=== PATIENT | female | born 1955 | race Caucasian/White ===

== ENCOUNTER 2017-07-28 05:10 | Inpatient (IN) | payer MEDICARE ==
[~2017-07-28] VITALS: Ht 162.6 cm; Wt 161.9 kg
--- NOTE | 2017-07-28 05:20 | NUR ---
morbidly obeses lachelle arrives via [facility] with the cc of progressively weaker legs to the paoint that she can not mobilize herself. EMS was origianlly called to the residence for a left assist, however patient decided she wanted to be evalauted for proplems with ambulation. Extremely poor hygiene. wide spread cutaneous candid infection of the groin, dimitris area and under the breasts. very strong malordoorous urine detected.
[2017-07-28 05:47] LABS: HEMATOCRIT 38.3 % (37.0-47.0); HEMOGLOBIN 11.5 g/dl (12.0-16.0); IMMATURE GRANULOCYTES 0.5 % (0.0-1.0); MEAN CELL VOLUME 82.4 fL CALC (80.0-100.0); MEAN CORPUSCULAR HGB 24.7 pG CALC (26.0-32.0); NEUT# 6.52 thou/uL (2.00-7.15); RED BLOOD COUNT 4.65 mill/uL (4.20-5.60); RED CELL DISTRI WIDTH 15.7 % (11.5-15.5); URINE BILIRUBIN - DIPSTICK NEGATIVE (NEGATIVE); URINE BLOOD DIPSTICK MODERATE (NEGATIVE); URINE COLOR YELLOW; URINE GLUCOSE - DIPSTICK NEGATIVE (NEGATIVE); URINE KETONE NEGATIVE (NEGATIVE); URINE PROTEIN - DIPSTICK 100 mg/dL (NEG-TRACE); URINE SPECIFIC GRAVITY 1.025
[2017-07-28 05:48] LABS: URINE CLARITY TURBID; URINE LEUK ESTERASE MODERATE (NEGATIVE); URINE NITRITE - DIPSTICK POSITIVE (Negative)
[2017-07-28 05:51] LABS: URINE BACTERIA MODERATE hpf; URINE SQUAMOUS EPITHELIAL CELL FEW EPI/hpf (0-FEW); URINE WBC >100 WBC/hpf (0-5)
[2017-07-28 06:10] LABS: ALBUMIN 3.4 g/dL (3.2-5.0); ALKALINE PHOSPHATASE 166 u/l (38-126); ANION GAP 13 (6-22 (CALC)); BILIRUBIN, TOTAL 1.2 mg/dL (0.0-1.4); BUN 20 mg/dL (8-23); BUN/CREATININE RATIO 15 (12-20 (CALC)); CALCIUM 8.8 mg/dL (8.4-10.2); CARBON DIOXIDE 27 mmol/l (22-30); CHLORIDE 105 mmol/l (95-108); CREATININE 1.4 mg/dL (0.5-1.0); GFR 38 ML/MIN (>=60 (CALC)); GFR FOR AFR.AMER. 46 ML/MIN (>=60 (CALC)); GLUCOSE 136 mg/dL (82-115); INTERNATIONAL NORMALIZED RATIO 1.1 RATIO (0.7-1.3); POTASSIUM 4.5 mmol/l (3.5-5.1); PROTHROMBIN TIME 12.5 SECONDS (9.0-12.5); SGOT/AST 35 u/l (9-36); SGPT/ALT 35 u/l (11-66); SODIUM 141 mmol/l (137-146); TOTAL PROTEIN 8.1 g/dL (6.3-8.2)
--- NOTE | 2017-07-28 06:20 | NUR ---
niece in to visit at this time.
--- NOTE | 2017-07-28 07:00 | NUR ---
report recd from portia kay. pt semifowlers. o2 2l/m via id. thornton patent to bsdb draining dark yellow urine approx 200 ml. reports no c/o. iv site healthy to rfa. call light within reach.
--- NOTE | 2017-07-28 08:15 | NUR ---
o2 removed by md. sats decreased to 88 on room air. o2 replaced by md. call light within reach. pt advised of pending admission.
--- NOTE | 2017-07-28 08:16 | NUR ---
SBAR PRINTED TO FLOOR
--- NOTE | 2017-07-28 08:33 | NUR ---
REPORT CALLED TO LITZY COUCH.
--- NOTE | 2017-07-28 08:39 | NUR ---
PT TO MEDSURG VIA STRETCHER ON TELEMETRY. IV SITE HEALTHY. O2 2L/M VIA NC CONTINUES. NO APPARENT DISTRESS.
--- NOTE | 2017-07-28 08:45 | NUR ---
PT TO ROOM VIA STRETCHER ACCOMPANIED BY STAFF; X4 PERSON TX TO BED; PT A/O X3; O2 2L VIA NC; SERNA DRAINING CLOUDY GEGE URINE TO BEDSIDE DRAIN; TELE MONITOR IN PLACE; ORIENTED TO ROOM AND CALL SYSTEM; CALL MAXWELL WITHIN REACH; WILL CONTINUE TO MONITOR.
[2017-07-28 09:32] VITALS: BP 168/80
--- NOTE | 2017-07-28 14:00 | NUR ---
PT REPOSITIONED; FAMILY IN ROOM; CALL MAXWELL WITHIN REACH; WILL CONTINUE TO MONITOR.
[2017-07-28 15:49] VITALS: BP 149/84
--- NOTE | 2017-07-28 16:30 | NUR ---
NYSTATIN POWDER APPLIED UNDER ALL FOLDS ORDERED; PT TOLERATED WELL
--- NOTE | 2017-07-28 16:41 | NUR ---
Talked to pt. about her new medications. She reported not experience any major side effects with solu-medrol, except some tingling. Pt. reported that weakness symptoms has been less a concern from previous days. She felt better and had no allergies problems with medications that she is currently on. She had no other questions at this time.
--- NOTE | 2017-07-28 17:45 | NUR ---
PT ASSISTED WITH DINNER SET UP; NO COMPLAINTS VOICED AT THIS TIME; CALL MAXWELL WITHIN REACH; WILL CONTINUE TO MONITOR.
--- NOTE | 2017-07-28 19:30 | NUR ---
PATIENT RESTING IN BED WITH HOB ELEVATED AND O2 VIA NASAL CANNULA IN PLACE. PATIENT IS AWKAE ALERT AND ORIENTEDX3. PATIENT WITH SERNA CATH PATENT AND DRAINING CLOUDY URINE. PATIENT WITH HEP LOCK RIGHT ARM-SITE APPEARS HEALTH Y AT THIS TIME. SAFELY PRECAUTIONS REINFORCED. CALL LIGHT IN REACH. WILL CONT TO MONITOR.
[2017-07-28 20:35] VITALS: BP 117/50
[2017-07-28 23:49] VITALS: BP 125/73
[2017-07-29 03:53] VITALS: BP 125/72
[2017-07-29 06:31] LABS: HEMATOCRIT 32.8 % (37.0-47.0); HEMOGLOBIN 9.8 g/dl (12.0-16.0); IMMATURE GRANULOCYTES 0.6 % (0.0-1.0); MEAN CELL VOLUME 83.5 fL CALC (80.0-100.0); MEAN CORPUSCULAR HGB 24.9 pG CALC (26.0-32.0); MEAN CORPUSCULAR HGB CONC 29.9 g/L CALC (32.0-36.0); NEUT# 6.38 thou/uL (2.00-7.15); RED BLOOD COUNT 3.93 mill/uL (4.20-5.60); RED CELL DISTRI WIDTH 15.3 % (11.5-15.5)
[2017-07-29 06:50] LABS: CALCIUM 8.4 mg/dL (8.4-10.2); CREATININE 1.5 mg/dL (0.5-1.0); MAGNESIUM 1.9 mg/dL (1.6-2.3)
[2017-07-29 06:51] LABS: POTASSIUM 5.2 mmol/l (3.5-5.1)
[2017-07-29 08:10] VITALS: BP 149/70
[2017-07-29 08:51] LABS: CHOLESTEROL HDL RATIO 5.1 (<4.4 (CALC))
--- NOTE | 2017-07-29 10:30 | NUR ---
PHYSICAL THERAPY IN WITH PT
[2017-07-29 11:00] VITALS: BP 125/70
--- NOTE | 2017-07-29 11:31 | NUR ---
PT REPOSITIONED AND ASSISTED WITH LUNCH SET UP
[2017-07-29 16:01] VITALS: BP 123/68
--- NOTE | 2017-07-29 17:40 | NUR ---
PT REPOSITIONED; ASSISTED WITH DINNER SET UP; NO COMPLAINTS VOICED; CALL MAXWELL WITHIN REACH; WILL CONTINUE TO MONITOR.
[2017-07-29 19:25] VITALS: BP 100/65
--- NOTE | 2017-07-29 19:30 | NUR ---
PATIENT RESTING IN BED WITH HOB ELEVATED AND O2 VIA NASAL CANNULA IN PLACE. PATIENT IS AWAKE ALERT AND ORIENTEDX3. HEP LOCK TO RIGHT AC-SITE APPEARS HEALTHY AT THIS TIME. BLE ARE RED AND SCALEY-ENCOURAGED TO KEEP ELEVATED WHEN ABLE. SERNA CATH PATENT AND DRAINING CLOUDY YELLOW URINE. SAFETY PRECAUTIONS REINFORCED. CALL LIGHT IN REACH. WILL CONT TO MONITOR.
--- NOTE | 2017-07-29 21:00 | NUR ---
PATIENT CONSTANTLY CALLING MOSTLY FOR BEDPAN WITH NO BM RESULTING. PATIENT IS MAX ASSIST OOB TO C WITH CONSTANT VERBAL QUES AND USE OF WALKER. PATIENT CONSTANTLY STATES THAT SHE IS GOING TO FALL-CONSTANT REASSURANCE GIVE. PATIENT WAS ABLE TO HAVE MODERATE AMT OF BROWN BM. LINENS WERE CHANGED. PATIENT WAS MAX ASSIST BACK TO BED AGAIN USING THE WALKER AND CONSTANT QUES. MUCH REASSURANCE WAS GIVEN. EDUCATED PATIENT ON THE DANGERS ON IMMOBILITY AND HOW IT AFFECTS THE BODY. PATIENT WAS GIVEN BATH AND SERNA CATH CARE. NYSTATIN POWDER WAS USE TO AFFECTED AREAS INCLUDING UNDER BOTH BREAST AND MULTIPLE ABD FOLDS-NEEDS MAX ASSIST TO DO PERSONEL CARE DUE TO THE PATIENT MORBID OBESITY. ASSISTED WITH REPOSITIONING. HOB ELEVATED FOR COMFORT. PATIENT ASKING FOR SANDWICH-PROVIDED WITH DRINK. SAFETY PRECAUTIONS REINFORCED. CALL LIGHT IN REACH.
[2017-07-29 23:46] VITALS: BP 135/75
--- NOTE | 2017-07-30 00:41 | NUR ---
PATIENT APPEARS SLEEPING AT THIS TIME WITH HOB ELEVATED AND O2 VIA NASAL CANNULA IN PLACE. SERNA PATENT AND DRAINING CLOUDY URINE. CALLL LIGHT IN REACH. WILL CONT TO MONITOR.
--- NOTE | 2017-07-30 03:30 | NUR ---
PATIENT APPEARS SLEEPING WITH HOB ELEVATED AND O2 VIA NASAL CANNULA IN PLACE. CALL LIGHT IN REACH. WILL CONT TO MONITOR.
[2017-07-30 03:45] VITALS: BP 155/99
[2017-07-30 05:30] VITALS: BP 137/65
--- NOTE | 2017-07-30 05:31 | NUR ---
PATIENT RESTING IN BED AT THIS TIME-REPEATING THAT SHE WANTS TO SLEEP; VS TAKEN AND RECORDED. HAND GRASP ARE EQUAL. MOVEMENT OF EXTREMITIES ARE WNL. SKIN IS WARM AND DRY. BS-337 VIA ACCU-CHECK. ALERT AND ORIENTEDX3. HAVING SOME DIFFICULTY FOLLOWING DIRECTIONS. O2 VIA NASAL CANNULA IN PLACE WITH HOB ELEVATED. CALL LIGHT IN REACH. WILL CONT TO MONITOR.
[2017-07-30 05:55] LABS: HEMATOCRIT 34.6 % (37.0-47.0); HEMOGLOBIN 10.1 g/dl (12.0-16.0); IMMATURE GRANULOCYTES 1.3 % (0.0-1.0); MEAN CELL VOLUME 86.1 fL CALC (80.0-100.0); MEAN CORPUSCULAR HGB 25.1 pG CALC (26.0-32.0); MEAN CORPUSCULAR HGB CONC 29.2 g/L CALC (32.0-36.0); NEUT# 12.44 thou/uL (2.00-7.15); RED BLOOD COUNT 4.02 mill/uL (4.20-5.60); RED CELL DISTRI WIDTH 15.7 % (11.5-15.5)
[2017-07-30 06:08] LABS: CALCIUM 8.6 mg/dL (8.4-10.2)
[2017-07-30 06:16] LABS: POTASSIUM 5.7 mmol/l (3.5-5.1)
[2017-07-30 08:20] VITALS: BP 127/70
--- NOTE | 2017-07-30 10:05 | NUR ---
PT.UP TO BSC AND BACK TO BED. PT.VERY WEAK, MANAGED X1 PIVOT OF FEET W/3XSTANDBY ASSIST. PT.MEDICATED W/MORNING MEDICATIONS ORDERED AND VENIFER. PT.HAS BEEN INSTRUCTED TO CALL NEEDS ARISE, CALL LIGHT W/IN REACH
[2017-07-30 11:00] VITALS: BP 138/64
--- NOTE | 2017-07-30 14:00 | NUR ---
PT.MEDICATED ORDERS PROVIDE, DAUGHTER AT BEDSIDE. PT.DENIES ANY OTHER NEEDS AT THIS TIME.
[2017-07-30 16:00] VITALS: BP 144/76
--- NOTE | 2017-07-30 16:07 | NUR ---
PATIENT AGREES TO TRY AND STAND, BUT DOES NOT FEEL COMFORTABLE WITH THE 2 WHEELED WALKER IN HER ROOM. SHE STATES THAT SHE ORDERED A BARIATRIC 4 WW WHICH SHOULD BE DELIVERED TO HER HERE AT THE HOSPITAL TOMORROW. SUPINE TO SIT BY SLOWLY MOVING EACH LEG TO THE RIGHT OFF THE BED. MAX PULL TO SIT WITH LEFT UE USING BED RAILS. PATIENT STATES THAT SHE HAS NOT BEEN ABLE TO SLEEP IN HER BED, BUT HAS BEEN SLEEPING SITTING UP ON COUCH AT HOME. SIT TO STAND WITH CGA, BED AND WALKER STABILIZED WITHOUT LOB. STOOD X 1 MIN AND WAS FATIGUED. STAND TO SIT WITH CGA AND V.C.'S. SIT TO SUPINE WITH MAX A AT LE'S AND DEPENDENT FOR CAUDAL SCOOTING WITH MAX A OF 3. PATIENT WILL NEED TO BE D/C'D TO INPATIENT REHAB SHE LIVES ALONE AND IS NOT ABLE TO CARE FOR HERSELF.
--- NOTE | 2017-07-30 16:40 | NUR ---
PT. MEDICATED FOR BS OF 311. PT.CLEANED AND TREATED W/NYSTATIN POWDER. DENIES ANY OTHER NEEDS AT THIS TIME. ASSISTED PT.IN REPOSITIONING. CALL LIGHT IN HAND
[2017-07-30 18:55] VITALS: BP 139/74
--- NOTE | 2017-07-30 19:30 | NUR ---
PT SITTING UP IN BED WATHING TV. PT IS ALERT AND ORIENTED X3. PERRLA. LUNGS ARE DIMINISHED. RESP ARE EVEN AND UNLABORED. TELE IN PLACE. HR REGULAR. PULSES PALPABLE THROUGHOUT. EDEMA NOTED 1+ TO BILAT LOWER EXT. BS ACTIVE. PT REPORTS A NORMAL BM YESTERDAY. SERNA DRAINING. YELLOW URINE THAT IS CLOUDY. #20 RFA. SALINE LOCKED. NO REDNESS OR EDEMA NOTED. WILL CONTINUE TO MONITOR.
--- NOTE | 2017-07-31 | NUR ---
PT SITTING UP IN BED WATCHING TV. RESP ARE EVEN AND UNLABORED. NO COMPLAINTS AT THIS TIME. TELE IN PLACE. SERNA DRAINING YELLOW URINE. WILL CONTINUE TO MONITOR
[2017-07-31 00:10] VITALS: BP 133/76
--- NOTE | 2017-07-31 04:14 | NUR ---
PT RESTING IN BED. RESP ARE EVEN AND UNLABORED. TELE IN PLACE. SERNA IN PLACE, NO COMPLAINTS AT THIS TIME. WILL CONTINUE TO MONITOR
[2017-07-31 04:45] VITALS: BP 133/82
--- NOTE | 2017-07-31 07:10 | NUR ---
PT.IN BED ASLEEP AT THIS TIME, BEDSIDE REPORT RECEIVED FROM NIGHT NURSE.
[2017-07-31 07:11] LABS: HEMATOCRIT 33.5 % (37.0-47.0); HEMOGLOBIN 9.9 g/dl (12.0-16.0); MEAN CELL VOLUME 84.8 fL CALC (80.0-100.0); MEAN CORPUSCULAR HGB 25.1 pG CALC (26.0-32.0); MEAN CORPUSCULAR HGB CONC 29.6 g/L CALC (32.0-36.0); RED BLOOD COUNT 3.95 mill/uL (4.20-5.60); RED CELL DISTRI WIDTH 15.4 % (11.5-15.5)
[2017-07-31 07:32] LABS: CALCIUM 8.5 mg/dL (8.4-10.2); CREATININE 2.2 mg/dL (0.5-1.0); POTASSIUM 5.4 mmol/l (3.5-5.1)
[2017-07-31 08:00] VITALS: BP 143/87
--- NOTE | 2017-07-31 08:00 | NUR ---
PT.V/S ASSESSED, PT.IS UPRIGHT IN BED EATING BREAKFAST AT THIS TIME. DENIES ANY PAIN OR DISCOMFORT. CALL LIGHT IS W/IN REACH
--- NOTE | 2017-07-31 10:15 | NUR ---
PT.CALLED TO ASK TO BE PLACED ON A BEDPAN, I ENCOURAGED PT.TO GET UP TO BEDSIDE COMMODE. PT.STATED THAT "IT'S TOO HARD," "I'M TOO TIRED." I INSTRUCTED PT.THAT WE NEED HER TO GET STRONGER SO SHE NEEDS TO GET UP TO BEDSIDE COMMODE AND NOT USE A BEDPAN AND THAT IS THE ONLY WAY SHE WILL INCREASE HER MOBILITY AND STRENGTH. PT.AGREED WITH MUCH ENCOURAGEMENT. PT.AMBULATED WITH ONE FO0T PIVOT TO BEDSIDE COMMODE WITH GREAT DIFFICULTY. SHE IS VERY WEAK IN HER UPPER ARMS AND LEGS. PT.WAS THEN ASSISTED TO RECLINER WITH AGAIN ONE FOOT PIVOT. 3X PEOPLE ASSISTING.
--- NOTE | 2017-07-31 10:30 | NUR ---
PT UP TO RECLINER BY 2 STAFF MEMBERS. PT TOOK 2 STEPS FORWARD TO RECLINER AND STOOD FOR A FEW MINUTES BEFORE SITTING IN RECLINER.
[2017-07-31 11:00] VITALS: BP 153/79
--- NOTE | 2017-07-31 11:21 | NUR ---
ATTEMPTED TX THIS MORNING AROUND 9:45AM. PT WAS WITH CNAS GIVING HER A BATH. WILL TRY AGAIN LATER.
--- NOTE | 2017-07-31 12:05 | NUR ---
PT WAS SEEN SITTING IN THE RECLINER. O2 VIA NASAL CANNULA WAS SET AT 2.5L SPO2 WAS 92%. MOD A WITH MULTIPLE ATTEMPTS TO PERFORM [id number]. PT WAS ABLE TO UTILIZE B UE TO PUSH SELF UP. TRANSFERRED FROM CHAIR TO BED WITH MAX A OF 2. PT WAS WITH SOB AND DIFFICULTY SCOOTING TO POSITION SELF ON THE BED. ELEVATED HOB REQUESTED BY PT. LEFT PT WITHOUT ADVERSE RXNS. CALL MAXWELL BESIDE HER.
--- NOTE | 2017-07-31 14:20 | NUR ---
Adan. HAS BEEN IN TO WORK WITH PT. THEY PLACED HER BACK IN BED.
[2017-07-31 15:00] VITALS: BP 136/63
[2017-07-31 18:55] VITALS: BP 134/72
--- NOTE | 2017-07-31 20:15 | NUR ---
PT SITTING UP IN BED. VISITOR IN ROOM. PT IS ALERT AND ORIENTED X3. PERRLA. LUNGS ARE DIMINISHED. RESP ARE EVEN AND UNLABORED. TELE IN PLACE. HR REGULAR. PULSES PALPABLE THROUGHOUT. NO EDEMA NOTED. BS ACTIVE. NO REDNESS OR EDEMA NOTED AT IV SITE. WILL CONTINUE TO MONITOR
--- NOTE | 2017-07-31 23:00 | NUR ---
PT SITTING UP IN BED. PT HAS TAKEN GOWN OFF. REORIENTED PT.
--- NOTE | 2017-08-01 | NUR ---
PT RESTING IN BED WITH EYES CLOSED. RESP ARE EVEN AND UNLABORED. TELE IN PLACE. WILL CONTINEU TO MONITOR
[2017-08-01 00:22] VITALS: BP 133/77
--- NOTE | 2017-08-01 04:00 | NUR ---
PT RESTING IN BED WITH EYES CLOSED. PT AROUSES TO VERBAL STIMULI. PT CONTINUES TO HAVE PERIODS OF CONFUSION. PT UNDRESSED. REDERESSED PT. TELE IN PLACE. WILL CONTINUE TO MONITOR
[2017-08-01 04:22] VITALS: BP 146/85
[2017-08-01 07:01] LABS: HEMATOCRIT 34.3 % (37.0-47.0); IMMATURE GRANULOCYTES 4.6 % (0.0-1.0); MEAN CELL VOLUME 84.7 fL CALC (80.0-100.0); MEAN CORPUSCULAR HGB 24.7 pG CALC (26.0-32.0); MEAN CORPUSCULAR HGB CONC 29.2 g/L CALC (32.0-36.0); NEUT# 6.51 thou/uL (2.00-7.15); RED BLOOD COUNT 4.05 mill/uL (4.20-5.60); RED CELL DISTRI WIDTH 15.6 % (11.5-15.5)
[2017-08-01 07:14] LABS: CALCIUM 8.5 mg/dL (8.4-10.2); CREATININE 2.1 mg/dL (0.5-1.0)
[2017-08-01 07:20] LABS: POTASSIUM 5.4 mmol/l (3.5-5.1)
--- NOTE | 2017-08-01 07:58 | NUR ---
PT.IS UPRIGHT IN BED EATING BREAKFAST, ASSISTED PT.IN REPOSITIONING. PT.MEDICATED W/NOVOLOG FOR A BS OF 179 AND V/S ASSESSED. DENIES ANY OTHER NEEDS AT THIS TIME, CALL LIGHT IS AT HAND.
[2017-08-01 08:02] VITALS: BP 146/65
[2017-08-01 11:00] VITALS: BP 139/66
[2017-08-01] MEDS ORDERED: IPRATROPIU0.5 MG/3 M NEB (13:47)
--- NOTE | 2017-08-01 13:47 | NUR ---
Pt. found resting in bed with HOB elevated and O2 at 2L via NC. Pt. in agreement to participate in therapeutic exercises while in bed. Pt. instructed on and performed bilateral AROM elbow flexion 1x10 repetitions, bilateral AROM shoulder flexion 1x10 repetitions, bilateral AROM ankle PF and DF 1x10 repetitions, right AAROM hip abduction 1x10 repetition and left AAROM hip abduction 1x10 repetitions. O2 sats maintained above 92% during treatment. Pt. reported feeling tired after few exercises, heels were floated using pillows. Call light reviewed and left within reach. Pt. without complaints.
[2017-08-01] MEDS ORDERED: NYSTOP100000 UNI TOP (13:48)
[2017-08-01] MEDS ORDERED: LEVAQUIN750 MG PO (13:49)
[2017-08-01] MEDS ORDERED: PREDNISONE10 MG PO (13:49)
[2017-08-01] MEDS ORDERED: CARDIZEM CD120 MG PO (13:50)
--- NOTE | 2017-08-01 15:25 | NUR ---
PT.REPOSITIONED IN THE BED AND NYSTATIN POWDER ADMINISTERED ALONG W/ ORDERED MEDICATIONS. FAMILY IS AT BEDSIDE. CALL LIGHT W/IN REACH, PT.DENIES ANY OTHER NEEDS AT THIS TIME
[2017-08-01 16:00] VITALS: BP 144/78
--- NOTE | 2017-08-01 18:10 | NUR ---
PT.DISCHARGED OFF THE UNIT FLOOR VIA WC ACCOMPANIED BY [facility] STAFF. PT.LEFT IN GOOD CONDITION W/O2 NC ON@2L.
== END 2017-08-01 18:04 | DRG 190 ==
LOC: ED 05:10 → ED-I 08:02 → ED 08:20 → MS2 08:21
PROVIDERS: Emergency Medicine; Nurse Practitioner Family; ADMIT Internal Medicine; ATTEND Internal Medicine
PROC: 0T9B70Z Drainage of Bladder with Drainage Device, Via Natural or Artificial Opening (ICD-10-PCS; principal; 2017-07-28)
DX: J44.1 Chronic obstructive pulmonary disease with (acute) exacerbation (principal); J96.01 Acute respiratory failure with hypoxia; N17.9 Acute kidney failure, unspecified; N18.3 Chronic kidney disease, stage 3 (moderate); L03.115 Cellulitis of right lower limb; E66.2 Morbid (severe) obesity with alveolar hypoventilation; E87.5 Hyperkalemia; L03.116 Cellulitis of left lower limb; N39.0 Urinary tract infection, site not specified; Z68.43 Body mass index [BMI] 50.0-59.9, adult; D63.1 Anemia in chronic kidney disease; I12.9 Hypertensive chronic kidney disease with stage 1 through stage 4 chronic kidney disease, or unspecified chronic kidney disease; I16.0 Hypertensive urgency; B96.20 Unspecified Escherichia coli [E. coli] as the cause of diseases classified elsewhere; R60.1 Generalized edema; L30.4 Erythema intertrigo; Z86.73 Personal history of transient ischemic attack (TIA), and cerebral infarction without residual deficits; Z87.891 Personal history of nicotine dependence
CPT/HCPCS: J1650; J1756

== ENCOUNTER 2017-08-03 14:43 | Emergency (ER) | payer MEDICARE ==
[~2017-08-03] VITALS: Ht 162.6 cm; Wt 154.0 kg
[~2017-08-03 14:43] MED LIST: CARDIZEM CD120 MG PO; IPRATROPIU0.5 MG/3 M NEB; LEVAQUIN750 MG PO; NYSTOP100000 UNI TOP; PREDNISONE10 MG PO
[2017-08-03 15:08] LABS: HEMATOCRIT 34.9 % (37.0-47.0); HEMOGLOBIN 10.3 g/dl (12.0-16.0); IMMATURE GRANULOCYTES 4.8 % (0.0-1.0); MEAN CELL VOLUME 83.5 fL CALC (80.0-100.0); MEAN CORPUSCULAR HGB 24.6 pG CALC (26.0-32.0); MEAN CORPUSCULAR HGB CONC 29.5 g/L CALC (32.0-36.0); NEUT# 6.03 thou/uL (2.00-7.15); RED BLOOD COUNT 4.18 mill/uL (4.20-5.60); RED CELL DISTRI WIDTH 15.9 % (11.5-15.5)
[2017-08-03 16:02] LABS: ALBUMIN 3.2 g/dL (3.2-5.0); BILIRUBIN, TOTAL 0.6 mg/dL (0.0-1.4); CALCIUM 8.9 mg/dL (8.4-10.2); CREATININE 1.8 mg/dL (0.5-1.0); TOTAL PROTEIN 6.8 g/dL (6.3-8.2)
[2017-08-03 16:06] LABS: POTASSIUM 5.8 mmol/l (3.5-5.1)
[2017-08-03 17:03] LABS: URINE BILIRUBIN - DIPSTICK NEGATIVE (NEGATIVE); URINE BLOOD DIPSTICK LARGE (NEGATIVE); URINE COLOR YELLOW; URINE GLUCOSE - DIPSTICK 100 mg/dL (NEGATIVE); URINE KETONE NEGATIVE (NEGATIVE); URINE NITRITE - DIPSTICK NEGATIVE (Negative); URINE PH 5.5 (4.5-8.0); URINE PROTEIN - DIPSTICK >=300 mg/dL (NEG-TRACE); URINE SPECIFIC GRAVITY 1.025; URINE UROBILINOGEN - DIPSTICK 0.2 E.U./dL (0.2)
[2017-08-03 17:05] LABS: URINE CLARITY CLOUDY; URINE LEUK ESTERASE SMALL (NEGATIVE)
[2017-08-03 17:14] LABS: URINE BACTERIA FEW hpf; URINE RBC TNTC RBC/hpf (0-5); URINE SQUAMOUS EPITHELIAL CELL FEW EPI/hpf (0-FEW)
[2017-08-03 18:18] VITALS: BP 136/62
== END 2017-08-03 18:18 | disposition short-term general hospital (02) ==
LOC: ED 14:43
PROVIDERS: Emergency Medicine
PROC: 0T9B70Z Drainage of Bladder with Drainage Device, Via Natural or Artificial Opening (ICD-10-PCS; principal; 2017-08-03)
DX: I63.9 Cerebral infarction, unspecified (principal); G81.94 Hemiplegia, unspecified affecting left nondominant side; R29.702 NIHSS score 2; I50.9 Heart failure, unspecified; E87.5 Hyperkalemia; J44.1 Chronic obstructive pulmonary disease with (acute) exacerbation; R09.02 Hypoxemia; R06.02 Shortness of breath; R94.31 Abnormal electrocardiogram [ECG] [EKG]; R41.82 Altered mental status, unspecified

== ENCOUNTER 2020-03-20 03:30 | Inpatient (IN) | payer MEDICARE ==
[~2020-03-20] VITALS: Ht 160 cm; Wt 178.5 kg
--- NOTE | 2020-03-20 03:30 | NUR ---
A/OF VIA EMS FROM HOME WIT HC/O SWELLING AT L BREAST X 2-3 DAYS DENIES DISCHARGE NO PAIN NO DIFF BREATHING
[2020-03-20 04:23] LABS: HEMATOCRIT 33.3 % (37.0-47.0); HEMOGLOBIN 9.9 g/dl (12.0-16.0); IMMATURE GRANULOCYTES 0.5 % (0.0-5.0); MEAN CORPUSCULAR HGB 28.4 pG CALC (26.0-32.0); MEAN CORPUSCULAR HGB CONC 29.7 g/dL CAL (32.0-36.0); NEUT# 5.03 thou/uL (2.00-7.15); RED BLOOD COUNT 3.48 mill/uL (4.20-5.60); RED CELL DISTRI WIDTH 14.8 % (11.5-15.5)
[2020-03-20 04:26] LABS: MEAN CELL VOLUME 95.7 fL CALC (80.0-100.0)
--- NOTE | 2020-03-20 04:39 | NUR ---
NO PAIN NO DYSPNEA.HOB FULLY ELEVATED.
[2020-03-20 05:00] LABS: BILIRUBIN, TOTAL 0.6 mg/dL (0.0-1.4); MAGNESIUM 2.2 mg/dL (1.6-2.3); TOTAL PROTEIN 6.6 g/dL (6.3-8.2)
[2020-03-20 05:01] LABS: CREATININE 2.8 mg/dL (0.5-1.0); POTASSIUM 5.5 mmol/l (3.5-5.1)
--- NOTE | 2020-03-20 05:14 | NUR ---
W/P/D SKIN SR NO ECTOPY ICE CHIPS GIVEN.NO DYSPNES NO PAIN
[2020-03-20 05:49] LABS: TSH, 3RD GENERATION 4.38 uIU/mL (0.47 - 4.68)
--- NOTE | 2020-03-20 06:05 | NUR ---
PT IS COMFORTABLE NO C/O PAIN IV INFUSION UNREMARKABLE.SR NO ECTOPY PILLOW PROPPED UNDER LEFT ARM FOR COMFORT
--- NOTE | 2020-03-20 06:50 | NUR ---
PT REPORT TO NURSE KIRKLAND ON MS2
--- NOTE | 2020-03-20 06:55 | NUR ---
PT TRANSPORTED TO 273 VIA STRETCHER IN STABLE CONDITION
[2020-03-20 07:20] VITALS: BP 150/65
[2020-03-20 08:10] VITALS: BP 124/68
--- NOTE | 2020-03-20 12:33 | NUR ---
DR. GARCIA AT BEDSIDE.
--- NOTE | 2020-03-20 13:19 | NUR ---
Report received from rafael.pt arrived to the floor @ 0645. pt transfered to the bed on slider from [facility]. Vitals and assessment preformed. PT REPORTS REDDNESS AND SENITIVITY TO HER LEFT BREAST. PT DENIES PAIN. PT HAS CLEAR LUNG SOUNDS BUT O2 STATS DOWN TO 89% WITH EXERTION. PT PLACED OLN 2 LITERS OF OXYGEN VIA NASAL CANNULA. HEALTHY IV SITE ON RIGHT HAND. DISSCUSSED POC. PT MORBIDLY OBESE WITH ACTIVE ABDOMINAL SOUNDS IN ALL QUARTER. PT ALERT AND ORIENTED. PT VERBALIZED UNDERSTANDING OF CALL MAWXELL AND THE NEED TO SEEK ASSISTANCE WITH AMBULATION TO THE BEDSIDE COMMODE. WILL CONTINUT TO MONITOR.
--- NOTE | 2020-03-20 13:22 | NUR ---
NEW RECEIVED FOR LASIX; ADMINISTERED IV AND PURWIK CATHETER NOW IN PLACE. PT USED BEDPAIN TWICE FOR VOID; ENCOURAGED TO USE BSC BUT STATES, "I DON'T THINK I CAN DO THAT TODAY." EVALUATED BY PT WITH IN BED EXERCISES.
--- NOTE | 2020-03-20 13:32 | NUR ---
NYA PROVIDED AND PLACED. SAFETY MEASURES IN PLACE.
[2020-03-20 15:19] LABS: URINE BILIRUBIN - DIPSTICK NEGATIVE (NEGATIVE); URINE BLOOD DIPSTICK TRACE-LYSED (NEGATIVE); URINE CLARITY CLEAR; URINE COLOR YELLOW; URINE GLUCOSE - DIPSTICK NEGATIVE (NEGATIVE); URINE KETONE NEGATIVE (NEGATIVE); URINE LEUK ESTERASE TRACE (Negative); URINE NITRITE - DIPSTICK NEGATIVE (Negative); URINE PH 5.5 (4.5-8.0); URINE PROTEIN - DIPSTICK 100 mg/dL (NEG-TRACE); URINE UROBILINOGEN - DIPSTICK 0.2 E.U./dL (0.2)
[2020-03-20 15:51] LABS: URINE SQUAMOUS EPITHELIAL CELL FEW EPI/hpf (0-FEW)
[2020-03-20 16:09] VITALS: BP 126/67
--- NOTE | 2020-03-20 16:16 | NUR ---
PATIENT ALERT AND ORIENTED; NO APPARENT DISTRESS. DENIES PAIN. IV CLEAN AND INTACT. TELE ON.PURWICK IN POSITION AND COLLECTING. PT ENCOURAGED TO VERBALIZE ANY CONCERNS. CALL MAXWELL WITHIN REACH. WILL CONTINUE TO MONITOR.
--- NOTE | 2020-03-20 17:27 | NUR ---
PTS ANTIBIOTIC DOXYCYCLINE RUNNING. PT IS IN NO APPARENT DISTRESS/PAIN. ENCOURAGED TO CALL FOR ANY NEEDS. CALL LIGHT WITHIN REACH.
[2020-03-20 19:00] VITALS: BP 120/68
--- NOTE | 2020-03-20 19:00 | NUR ---
RECEIVED REPORT FROM DAY NURSE PATIENT RESTING IN BREATHING SHALLOW, UNLABORED, HOOKED TO UR Mobile[employer] CALL LIGHT AT REACH.
--- NOTE | 2020-03-20 21:00 | NUR ---
PATIENT ALERT AND ORIENTED ABLE TO MAKE NEEDS KNONW, WITH SALINE LOCK ON LEFT PATENT AND FLUSHES WELL, LBM 03/19, WITH PUREWICK, NOTED TO HAVE EDEMA ON ABDOMINAL AREA AND SWELLING ON LEFT BREAST, POX 88-89 ON ROOM AIR OXYGEN APPLIED, CURRENTLY ON 1.5LPM VIA NC POX 93%. pATIENT DENIES PAIN OR DISCOMFORTS CALL LIGHT AT REACH, PATIEN REPOSITIONED FOR COMFORT.
--- NOTE | 2020-03-21 | NUR ---
PATIENT AWAKE AT THIS TIME, REMAINS ON O2 @ 1.5LPM VIA NC, BREATHING SHALLOW UNLABORED CALL LIGHT AT REACH.
[2020-03-21 04:00] VITALS: BP 132/64
--- NOTE | 2020-03-21 05:07 | NUR ---
PATIENT AWAKE AT THIS TIME, PATIENT REPOSITIONED, REMAINS ON O2 @ 1.5LPM VIA NC, BREATHING UNLABORED CALL LIGHT AT REACH.
[2020-03-21 05:50] LABS: HEMATOCRIT 34.2 % (37.0-47.0); HEMOGLOBIN 9.8 g/dl (12.0-16.0); MEAN CELL VOLUME 98.6 fL CALC (80.0-100.0); MEAN CORPUSCULAR HGB 28.2 pG CALC (26.0-32.0); MEAN CORPUSCULAR HGB CONC 28.7 g/dL CAL (32.0-36.0); RED BLOOD COUNT 3.47 mill/uL (4.20-5.60); RED CELL DISTRI WIDTH 14.6 % (11.5-15.5)
[2020-03-21 06:12] LABS: CHOLESTEROL HDL RATIO 4.6 (<4.4 (CALC)); MAGNESIUM 2.3 mg/dL (1.6-2.3)
[2020-03-21 06:16] LABS: POTASSIUM 5.2 mmol/l (3.5-5.1)
[2020-03-21 06:28] LABS: ALBUMIN 3.1 g/dL (3.2-5.0); CREATININE 2.9 mg/dL (0.5-1.0)
[2020-03-21 06:29] LABS: POTASSIUM 5.2 mmol/l (3.5-5.1)
[2020-03-21 08:10] VITALS: BP 120/60
--- NOTE | 2020-03-21 08:53 | NUR ---
SISTER ROBI UPDATED WITH PT CONSENT; PROVIDED WITH CODE. QUESTIONS ANSWERED TO SATISFACTION.
--- NOTE | 2020-03-21 09:05 | NUR ---
PHYSICAL THERAPY WORKING WITH PT.
--- NOTE | 2020-03-21 10:05 | NUR ---
REPORT RECIEVED; PT ASSESSED V/S ASSESSED, PT IS ALERT AND ORIENTED. NO S/O DISTRESS NOTED. IV SITE APPEARS HEALTHY WITH HEALTHY FLUSHES. POC REVIEWED.
--- NOTE | 2020-03-21 10:09 | NUR ---
16 TAMAZIGHT SERNA CATHETER INSERTED AT 0950. PT TOLERATED PROCEDURE WELL. URINE RETURN.
--- NOTE | 2020-03-21 10:32 | NUR ---
IV SITE TO LEFT HAND RED, WARM, AND PAINFUL TO FLUSH; IV D/C'D AND NEW SITE PLACED TO RAC. VENEFOR NOW INFUSING WITHOUT DIFFICULTY. PT SITTING UP IN BED TALKING ON CELL PHONE TO MULIPLE FAMILY MEMBERS.
--- NOTE | 2020-03-21 11:02 | NUR ---
Pt. found resting in bed upon entering room, explained physical therapy treatment plan of which she agrees to exercise in bed. Pt. performed PROM ankle PF/DF x10 repetitions, AAROM heel slides x5 repetitions, glut. sets x 10 repetitions, quad. sets x10 repetitions, AROM overhead reaching x10 repetitions and AROM elbow flexion x10 repetitions with intermitent verbal, visual and tactile cues. Post treatment pt. left resting comfortably in bed with call light+bedside table within reach. AMPAC score unchanged.
[2020-03-21 15:57] VITALS: BP 113/65
--- NOTE | 2020-03-21 16:00 | NUR ---
ASSISTED TO BEDPAN FOR BOWEL MOVEMENT X 2. SERNA CATHETER DRAINING CLEAR YELLOW URINE IN ADEQUATE AMOUNTS. NO REQUESTS OR CONCERNS AT THIS TIME. CALL LIGHT WITHIN REACH.
--- NOTE | 2020-03-21 19:00 | NUR ---
RECEIVED REPORT FROM NURSE ROBLERO PATIENT RESTING IN BED, HOOKED TO O2 @ 2LPM VIA NC, BREATHING SHALLOW UNLABORED, CALL LIGHT AT REACH.
[2020-03-21 19:15] VITALS: BP 104/39
[2020-03-21 20:45] VITALS: BP 100/62
--- NOTE | 2020-03-21 21:00 | NUR ---
PATIENT ALERT ORIENTED ABLE TO MAKE NEEDS KNOWN, HOOKED TO O2 @ 2LPM VIA NC, WITH INDWELLING SERNA CATHETER F 16 DRAINING CLEAR YELOOW URINE, REMAINS ON 1500CC FLUID RWESTRICTION, BREATHING SHALLOW UNLABORED, CALL LIGHT AT REACH.
--- NOTE | 2020-03-22 00:55 | NUR ---
PATIENT CURRENTLY RESTING IN BED, WITH EYES CLOSED, NOT IN DISTRESS CALL LIGHT AT REACH.
[2020-03-22 03:30] VITALS: BP 119/68
--- NOTE | 2020-03-22 04:05 | NUR ---
PATIENT AWAKE CURRENTLY WATCHING TV, DENIES PAIN REMAINS ON O2 @ 2LPM, BREATHING UNLABORED, CALL LIGHT AT REACH.
[2020-03-22 05:51] LABS: HEMATOCRIT 32.6 % (37.0-47.0); HEMOGLOBIN 9.4 g/dl (12.0-16.0); IMMATURE GRANULOCYTES 1.4 % (0.0-5.0); MEAN CELL VOLUME 97.9 fL CALC (80.0-100.0); MEAN CORPUSCULAR HGB 28.2 pG CALC (26.0-32.0); MEAN CORPUSCULAR HGB CONC 28.8 g/dL CAL (32.0-36.0); NEUT# 3.62 thou/uL (2.00-7.15); RED BLOOD COUNT 3.33 mill/uL (4.20-5.60); RED CELL DISTRI WIDTH 14.6 % (11.5-15.5)
[2020-03-22 06:13] LABS: ALBUMIN 2.7 g/dL (3.2-5.0); CREATININE 2.9 mg/dL (0.5-1.0); POTASSIUM 5.1 mmol/l (3.5-5.1)
[2020-03-22 09:00] VITALS: BP 124/70
--- NOTE | 2020-03-22 12:25 | NUR ---
Explained treatment plan of which pt. agrees to participate in therapeutic exercises in bed. Pt. able to perform slight weight shifting side to side with use of arms on railing, AROM overhead reaching x 10 repetitions, quad. sets x 10 repetitions, glut. sets x 10 repetitions, ankle pumps 10 repetitions, and hip adduction isometrics x 10 repetitions. Pt. required verbal,visual and tactile cues throughout exercise. Post ex. pt. without questions/concerns. Her call light+bedside table was left within reach. AMPAC score unchanged:9
--- NOTE | 2020-03-22 13:41 | NUR ---
PT IS ALERT AND ORIENTED AND ABLE TO MAKE NEEDS KNOWN. HAS REDNESS TO RIGHT THIGH AREA, LEFT BREAST, AND ABDOMEN. HAS NYSTATIN CREAM ORDERED. MEDICATIONS GIVEN AND TOLERATED WELL. TOLERATED VENEFOR WELL. MD IN TO SEE PT TODAY AND NEW ORDERS NOTED. PT DENIES PAIN OR DISCOMFORT. REPOSITIONED WITH STAFF ASSIST. CASE MANAGEMENT DISCUSSED WITH PT REGARDING REHAB AND SHE HAS AGREED T6O REHABILITATION FOR THERAPY. NO S/S OF HYPO/HYPERGLYCEMIA. HOB ELEVATED. CALL LIGHT WITHIN REACH. WILL CONTINUE TO OBSERVE.
[2020-03-22 15:11] VITALS: BP 131/58
--- NOTE | 2020-03-22 19:15 | NUR ---
REPORT FROM TREVON MCGHEE. PT NOTED RESTING IN BED. PT WAKES EASILY. ALERT AND ORIENTED. 02 OFF AT THIS TIME, NO APPARENT RESPIRATORY DISTRESS NOTED. SAT 85%, O2 PLACED BACK ON PT AT THIS TIME AND SAT NOW 92%. ENCOURAGED PT TO KEEP O2 IN PLACE. IV SITE APPEARS HEALTHY. SERNA REMAINS PATENT. FLUID RESTRICTION IN PLACE. DISCUSSED POC. PT VERBALIZED UNDERSTANDING. NO CURRENT WANTS OR NEEDS, PT DENIES ANY PAIN OR DISCOMFORT. CALL LIGHT WITHIN REACH. WILL CONTINUE TO MONITOR.
[2020-03-22 19:29] VITALS: BP 104/58
--- NOTE | 2020-03-22 19:35 | NUR ---
PT INBED WITH EYES OPEN AND ABLE TO MAKE NEEDS KNOWN. SKIN WARM TO TOUCH. MEDICATIONS GIVEN AND TOLERATED WEELL. DENIES PAIN. NO RESPIROTORY DISTRESS NOTED. CALL LIGHT WITHIN REACH. WILL CONTINUE TO OBSERVE
[2020-03-22 23:30] VITALS: BP 118/59
--- NOTE | 2020-03-22 23:55 | NUR ---
PT RESTING IN BED WITH EYES CLOSED. NO APPARENT DISTRESS NOTED. RESPIRATIONS EVEN AND UNLABORED. [address] SERNA PATENT AND DRAINING TO GRAVITY. CALL LIGHT WITHIN REACH. WILL CONTINUE TO MONITOR.
--- NOTE | 2020-03-23 03:37 | NUR ---
PT RESTING IN BED WITH EYES CLOSED. NO APPARENT DISTRESS NOTED. RESPIRATIONS EVEN AND UNLABORED. SERNA PATENT DRAINING TO GRAVITY. CALL LIGHT WITHIN REACH. WILL CONTINUE TO MONITOR.
[2020-03-23 03:45] VITALS: BP 119/27
[2020-03-23 05:43] LABS: ALBUMIN 3.1 g/dL (3.2-5.0)
[2020-03-23 07:35] VITALS: BP 118/51
--- NOTE | 2020-03-23 10:31 | NUR ---
SPOKE WITH FAMILY SERVICES ASSISTANT WHO REPORTED THAT PT HAS A PENDING COVID TESTING PRIOR TO TRANSFER TO IN-PT REHAB TODAY.
--- NOTE | 2020-03-23 10:56 | NUR ---
Patient alert and oriented x4, patient wearing oxygen, lungs diminished. patient verb understanding of discharge plans. patient has edema waist down, and left breast. [place] draining clear yellow urine. Patient is able to rubina with repositioning but requires assistance. Skin excoriated under abdominal folds.
[2020-03-23] MEDS ORDERED: DOXYCYCL HYC100 MG PO (13:31)
[2020-03-23] MEDS ORDERED: METOLAZONE5 MG PO (13:31)
[2020-03-23] MEDS ORDERED: LASIX 40 MG TAB40 MG PO (13:31)
[2020-03-23] MEDS ORDERED: NYAMYC100000 UNI TOP (13:31)
--- NOTE | 2020-03-23 14:49 | NUR ---
Discharge instructions given. Patient verb understanding that she will be going to rehab for strengthening. Also reviewed medications with patient she verb understanding. Prior to discharge spoke with Jesse Truong @ [phone].
[2020-03-23 15:00] VITALS: BP 132/72
--- NOTE | 2020-03-23 15:15 | NUR ---
Nurse to Nurse, spoke to [facility] [phone].
--- NOTE | 2020-03-23 17:13 | NUR ---
Transport to last picker patient, d/c'd sanjana rac. Patient transported via stretcher
== END 2020-03-23 17:20 | DRG 600 ==
LOC: ED 03:30 → ED-I 05:53 → ED 06:07 → ED-I 06:08 → MS2 06:34
PROVIDERS: Family Medicine; Internal Medicine Nephrology; Nurse Practitioner; ADMIT Internal Medicine; ATTEND Internal Medicine
PROC: 0T9B70Z Drainage of Bladder with Drainage Device, Via Natural or Artificial Opening (ICD-10-PCS; principal; 2020-03-21)
DX: N61.0 Mastitis without abscess (principal); N17.9 Acute kidney failure, unspecified; Z68.44 Body mass index [BMI] 60.0-69.9, adult; L03.311 Cellulitis of abdominal wall; I13.0 Hypertensive heart and chronic kidney disease with heart failure and stage 1 through stage 4 chronic kidney disease, or unspecified chronic kidney disease; E87.1 Hypo-osmolality and hyponatremia; I16.0 Hypertensive urgency; N18.3 Chronic kidney disease, stage 3 (moderate); I50.9 Heart failure, unspecified; B37.2 Candidiasis of skin and nail; E87.5 Hyperkalemia; D63.1 Anemia in chronic kidney disease; R53.81 Other malaise; E66.01 Morbid (severe) obesity due to excess calories; T50.906A Underdosing of unspecified drugs, medicaments and biological substances, initial encounter; Z91.128 Patient's intentional underdosing of medication regimen for other reason; Z86.73 Personal history of transient ischemic attack (TIA), and cerebral infarction without residual deficits; Z87.891 Personal history of nicotine dependence; Z20.828 Contact with and (suspected) exposure to other viral communicable diseases
CPT/HCPCS: J1650; J1756; Q5106 EC

== ENCOUNTER 2020-12-07 14:06 | Inpatient (IN) | payer MEDICARE, OTHER ==
[~2020-12-07 14:06] MED LIST changes: +DOXYCYCL HYC100 MG PO; +LASIX 40 MG TAB40 MG PO; +METOLAZONE5 MG PO; +NYAMYC100000 UNI TOP
[2020-12-07 14:46] LABS: HEMATOCRIT 30.2 % (37.0-47.0); HEMOGLOBIN 9.2 g/dl (12.0-16.0); IMMATURE GRANULOCYTES 0.6 % (0.0-5.0); MEAN CELL VOLUME 96.5 fL CALC (80.0-100.0); MEAN CORPUSCULAR HGB 29.4 pG CALC (26.0-32.0); MEAN CORPUSCULAR HGB CONC 30.5 g/dL CAL (32.0-36.0); NEUT# 6.84 thou/uL (2.00-7.15); RED BLOOD COUNT 3.13 mill/uL (4.20-5.60); RED CELL DISTRI WIDTH 14.3 % (11.5-15.5)
[2020-12-07] MEDS ORDERED: GLIMEPIRIDE2 MG PO (14:50)
[2020-12-07 15:03] LABS: ALBUMIN 3.5 g/dL (3.2-5.0); ALKALINE PHOSPHATASE 102 u/l (38-126); ANION GAP 9 (6-22 (CALC)); BILIRUBIN, TOTAL 0.7 mg/dL (0.0-1.4); BUN/CREATININE RATIO 19 (12-20 (CALC)); CARBON DIOXIDE 26 mmol/l (22-30); CHLORIDE 106 mmol/l (95-108); CREATININE 3.1 mg/dL (0.5-1.0); GFR 15 ML/MIN (>=60 (CALC)); GFR FOR AFR.AMER. 18 ML/MIN (>=60 (CALC)); POTASSIUM 4.8 mmol/l (3.5-5.1); SGOT/AST 19 u/l (9-36); SODIUM 137 mmol/l (137-146); TOTAL PROTEIN 7.4 g/dL (6.3-8.2)
[2020-12-07 15:08] LABS: BUN 58 mg/dL (8-23)
[2020-12-07 15:15] LABS: MYOGLOBIN 120 ng/mL (0 - 62)
[2020-12-07 17:52] VITALS: BP 136/66
[2020-12-08] VITALS (23 sets, daily range): BP systolic 105–144; BP diastolic 49–64
[2020-12-08 02:22] LABS: URINE BILIRUBIN - DIPSTICK NEGATIVE (NEGATIVE); URINE BLOOD DIPSTICK LARGE (NEGATIVE); URINE COLOR YELLOW; URINE GLUCOSE - DIPSTICK NEGATIVE (NEGATIVE); URINE KETONE NEGATIVE (NEGATIVE); URINE PH 5.5 (4.5-8.0); URINE PROTEIN - DIPSTICK 100 mg/dL (NEG-TRACE); URINE SPECIFIC GRAVITY 1.025; URINE UROBILINOGEN - DIPSTICK 0.2 E.U./dL (0.2)
[2020-12-08 02:25] LABS: URINE LEUK ESTERASE MODERATE (NEGATIVE); URINE NITRITE - DIPSTICK POSITIVE (Negative)
[2020-12-08 02:36] LABS: URINE BACTERIA FEW hpf; URINE SQUAMOUS EPITHELIAL CELL FEW EPI/hpf (0-FEW)
[2020-12-08 02:37] LABS: URINE MUCUS FEW hpf (NONE-FEW)
[2020-12-08 06:04] LABS: HEMATOCRIT 27.2 % (37.0-47.0); HEMOGLOBIN 8.2 g/dl (12.0-16.0); IMMATURE GRANULOCYTES 0.4 % (0.0-5.0); MEAN CELL VOLUME 98.2 fL CALC (80.0-100.0); MEAN CORPUSCULAR HGB 29.6 pG CALC (26.0-32.0); MEAN CORPUSCULAR HGB CONC 30.1 g/dL CAL (32.0-36.0); NEUT# 6.26 thou/uL (2.00-7.15); RED BLOOD COUNT 2.77 mill/uL (4.20-5.60); RED CELL DISTRI WIDTH 14.3 % (11.5-15.5)
[2020-12-08 06:33] LABS: BILIRUBIN, TOTAL 0.6 mg/dL (0.0-1.4); CHOLESTEROL HDL RATIO 3.9 (<4.4 (CALC)); CREATININE 2.9 mg/dL (0.5-1.0); MAGNESIUM 2.1 mg/dL (1.6-2.3)
[2020-12-08 06:36] LABS: POTASSIUM 5.2 mmol/l (3.5-5.1); TOTAL PROTEIN 5.9 g/dL (6.3-8.2)
[2020-12-08 06:37] LABS: ALBUMIN 2.6 g/dL (3.2-5.0)
[2020-12-09] VITALS (22 sets, daily range): BP systolic 99–143; BP diastolic 47–77
[2020-12-09 06:32] LABS: HEMATOCRIT 30.9 % (37.0-47.0); IMMATURE GRANULOCYTES 1.3 % (0.0-5.0); MEAN CELL VOLUME 99.7 fL CALC (80.0-100.0); MEAN CORPUSCULAR HGB CONC 29.1 g/dL CAL (32.0-36.0); NEUT# 5.25 thou/uL (2.00-7.15); RED BLOOD COUNT 3.1 mill/uL (4.20-5.60); RED CELL DISTRI WIDTH 14.6 % (11.5-15.5)
[2020-12-09 06:52] LABS: CREATININE 2.9 mg/dL (0.5-1.0); MAGNESIUM 2.1 mg/dL (1.6-2.3)
[2020-12-09 06:53] LABS: POTASSIUM 5.9 mmol/l (3.5-5.1)
[2020-12-09 07:10] LABS: ALBUMIN 3.3 g/dL (3.2-5.0); POTASSIUM 5.8 mmol/l (3.5-5.1)
[2020-12-10] VITALS (23 sets, daily range): BP systolic 107–156; BP diastolic 46–75
[2020-12-10 05:37] LABS: HEMATOCRIT 29.8 % (37.0-47.0); HEMOGLOBIN 9.1 g/dl (12.0-16.0); MEAN CELL VOLUME 97.7 fL CALC (80.0-100.0); MEAN CORPUSCULAR HGB 29.8 pG CALC (26.0-32.0); MEAN CORPUSCULAR HGB CONC 30.5 g/dL CAL (32.0-36.0); RED BLOOD COUNT 3.05 mill/uL (4.20-5.60); RED CELL DISTRI WIDTH 14.5 % (11.5-15.5)
[2020-12-10 06:09] LABS: ALBUMIN 2.9 g/dL (3.2-5.0); CREATININE 3.1 mg/dL (0.5-1.0)
[2020-12-11] VITALS (23 sets, daily range): BP systolic 111–158; BP diastolic 52–87
[2020-12-11 05:16] LABS: ALBUMIN 2.8 g/dL (3.2-5.0); POTASSIUM 4.2 mmol/l (3.5-5.1)
[2020-12-12] VITALS (16 sets, daily range): BP systolic 99–163; BP diastolic 49–76
[2020-12-12 05:27] LABS: HEMATOCRIT 30.4 % (37.0-47.0); HEMOGLOBIN 9.1 g/dl (12.0-16.0); MEAN CELL VOLUME 95.6 fL CALC (80.0-100.0); MEAN CORPUSCULAR HGB 28.6 pG CALC (26.0-32.0); MEAN CORPUSCULAR HGB CONC 29.9 g/dL CAL (32.0-36.0); RED BLOOD COUNT 3.18 mill/uL (4.20-5.60); RED CELL DISTRI WIDTH 14.4 % (11.5-15.5)
[2020-12-12 05:48] LABS: ALBUMIN 2.7 g/dL (3.2-5.0); BILIRUBIN, TOTAL 0.7 mg/dL (0.0-1.4); TOTAL PROTEIN 5.8 g/dL (6.3-8.2)
[2020-12-13] VITALS: BP 126/68
[2020-12-13 04:11] VITALS: BP 119/60
[2020-12-13 05:39] LABS: HEMOGLOBIN 9.6 g/dl (12.0-16.0); MEAN CORPUSCULAR HGB 29.1 pG CALC (26.0-32.0); RED BLOOD COUNT 3.3 mill/uL (4.20-5.60); RED CELL DISTRI WIDTH 14.5 % (11.5-15.5)
[2020-12-13 06:08] LABS: ALBUMIN 2.8 g/dL (3.2-5.0); BILIRUBIN, TOTAL 0.7 mg/dL (0.0-1.4); CREATININE 3.1 mg/dL (0.5-1.0); MAGNESIUM 1.9 mg/dL (1.6-2.3); TOTAL PROTEIN 6.1 g/dL (6.3-8.2)
[2020-12-13 07:10] VITALS: BP 120/62
[2020-12-13 10:36] VITALS: BP 138/65
[2020-12-13 15:00] VITALS: BP 153/77
[2020-12-13 19:00] VITALS: BP 155/71
[2020-12-14 00:30] VITALS: BP 148/71
[2020-12-14 04:00] VITALS: BP 140/72
[2020-12-14 05:44] LABS: HEMATOCRIT 31.5 % (37.0-47.0); HEMOGLOBIN 9.6 g/dl (12.0-16.0); IMMATURE GRANULOCYTES 1.1 % (0.0-5.0); MEAN CORPUSCULAR HGB 29.3 pG CALC (26.0-32.0); MEAN CORPUSCULAR HGB CONC 30.5 g/dL CAL (32.0-36.0); NEUT# 3.38 thou/uL (2.00-7.15); RED BLOOD COUNT 3.28 mill/uL (4.20-5.60); RED CELL DISTRI WIDTH 14.3 % (11.5-15.5)
[2020-12-14 06:08] LABS: ALBUMIN 2.8 g/dL (3.2-5.0); BILIRUBIN, TOTAL 0.8 mg/dL (0.0-1.4); CREATININE 2.9 mg/dL (0.5-1.0)
[2020-12-14 07:56] VITALS: BP 145/75
[2020-12-14] MEDS ORDERED: BUMEX1 M1 PO (10:23)
[2020-12-14] MEDS ORDERED: CIPROFLOXACIN250 MG PO (10:26)
[2020-12-14] MEDS ORDERED: ASPIRIN ADULT L81 M2 PO (10:31)
[2020-12-14 10:46] VITALS: BP 145/75
[2020-12-14 15:16] VITALS: BP 135/71
== END 2020-12-14 20:20 | DRG 291 ==
LOC: ED 14:06 → ED-I 15:53 → ED 15:53 → ED-I 17:06 → ED 17:16 → MS2 17:17 → ICU 17:17 → MS2 12-12 11:42
PROVIDERS: Emergency Medicine; Internal Medicine Nephrology; Nurse Practitioner; ADMIT Internal Medicine; ATTEND Internal Medicine
DX: I13.0 Hypertensive heart and chronic kidney disease with heart failure and stage 1 through stage 4 chronic kidney disease, or unspecified chronic kidney disease (principal); I50.33 Acute on chronic diastolic (congestive) heart failure; N17.9 Acute kidney failure, unspecified; E87.1 Hypo-osmolality and hyponatremia; N39.0 Urinary tract infection, site not specified; Z68.43 Body mass index [BMI] 50.0-59.9, adult; N18.4 Chronic kidney disease, stage 4 (severe); E11.22 Type 2 diabetes mellitus with diabetic chronic kidney disease; T38.3X5A Adverse effect of insulin and oral hypoglycemic [antidiabetic] drugs, initial encounter; E11.649 Type 2 diabetes mellitus with hypoglycemia without coma; D63.1 Anemia in chronic kidney disease; E55.9 Vitamin D deficiency, unspecified; E87.5 Hyperkalemia; L30.4 Erythema intertrigo; J44.9 Chronic obstructive pulmonary disease, unspecified; R06.89 Other abnormalities of breathing; R53.1 Weakness; E66.01 Morbid (severe) obesity due to excess calories; N28.89 Other specified disorders of kidney and ureter; Z79.84 Long term (current) use of oral hypoglycemic drugs; R09.02 Hypoxemia; T50.2X6A Underdosing of carbonic-anhydrase inhibitors, benzothiadiazides and other diuretics, initial encounter; Z91.128 Patient's intentional underdosing of medication regimen for other reason; Z87.891 Personal history of nicotine dependence; Z99.3 Dependence on wheelchair; Z86.73 Personal history of transient ischemic attack (TIA), and cerebral infarction without residual deficits; Z20.822 Contact with and (suspected) exposure to COVID-19
CPT/HCPCS: G0378; J1610; J1756; Q5106 EC

== ENCOUNTER 2021-01-28 18:21 | Inpatient (IN) | payer MEDICARE, OTHER ==
[~2021-01-28] VITALS: Ht 160 cm; Wt 140.0 kg
[~2021-01-28 18:21] MED LIST changes: +ASPIRIN ADULT L81 M2 PO; +BUMEX1 M1 PO; +CIPROFLOXACIN250 MG PO; +GLIMEPIRIDE2 MG PO
--- NOTE | 2021-01-28 18:35 | NUR ---
PT TO ROOM PER EMS FOR WEAKNESS, STATES THIS HAS BEEN GOING ON FOR ABOUT TWO DAYS, STATES FEELS TIRED ALL THE TIME, NURSES DID A SAT TEST AND SHE WAS IN THE LOW 80'S, SO SHE WAS SENT TO ER
[2021-01-28 18:42] LABS: HEMATOCRIT 29.1 % (37.0-47.0); HEMOGLOBIN 9.2 g/dl (12.0-16.0); IMMATURE GRANULOCYTES 0.5 % (0.0-5.0); MEAN CELL VOLUME 94.2 fL CALC (80.0-100.0); MEAN CORPUSCULAR HGB 29.8 pG CALC (26.0-32.0); MEAN CORPUSCULAR HGB CONC 31.6 g/dL CAL (32.0-36.0); NEUT# 5.96 thou/uL (2.00-7.15); RED BLOOD COUNT 3.09 mill/uL (4.20-5.60); RED CELL DISTRI WIDTH 15.6 % (11.5-15.5)
[2021-01-28 18:54] LABS: ALKALINE PHOSPHATASE 114 u/l (38-126); BILIRUBIN, TOTAL 0.7 mg/dL (0.0-1.4); BUN 74 mg/dL (8-23); BUN/CREATININE RATIO 27 (12-20 (CALC)); CARBON DIOXIDE 26 mmol/l (22-30); CHLORIDE 104 mmol/l (95-108); CREATININE 2.7 mg/dL (0.5-1.0); GFR 18 ML/MIN (>=60 (CALC)); GFR FOR AFR.AMER. 21 ML/MIN (>=60 (CALC)); SGOT/AST 19 u/l (9-36); SODIUM 137 mmol/l (137-146)
[2021-01-28 18:55] LABS: ALBUMIN 3.8 g/dL (3.2-5.0); ANION GAP 12 (6-22 (CALC)); POTASSIUM 4.9 mmol/l (3.5-5.1); TOTAL PROTEIN 7.8 g/dL (6.3-8.2)
--- NOTE | 2021-01-28 19:00 | NUR ---
PATIENT STATES TO ME THAT SHE IS NOT WEAK, STATES SHE WAS SHORT OF BREATH AND HAD LOW O2 SATS AND THAT IS WHY SHE WAS SENT IN. DENIES ANY WEAKNESS.
[2021-01-28 19:07] LABS: MYOGLOBIN 58 ng/mL (0 - 62)
--- NOTE | 2021-01-28 19:40 | NUR ---
PATIENT RESTINGIN BED, AAO, TEARFUL STATING SHE DOESN'T LIKE TO BE ALONE. THERAPEUTIC CIMMUNICATION PROVIDED. PLAN REVIEWED. PATIENT VERBALIZES UNDERSTANDING. DOOR LEFT OPEN AT PATIENTS REQUEST. CALL MAXWELL IN REACH.
[2021-01-28] MEDS ORDERED: CALCIUM600 M1 PO (19:53)
[2021-01-28] MEDS ORDERED: NORVASC5 M1 PO (19:53)
[2021-01-28] MEDS ORDERED: FOLIC ACID1 MG PO (19:54)
[2021-01-28] MEDS ORDERED: AMMONIUM LAC122 EX (19:54)
[2021-01-28] MEDS ORDERED: ALIVE WOMENS 501 CHW PO (19:57)
--- NOTE | 2021-01-28 20:24 | NUR ---
REPORT CALLED TO LITZY SOSA IN SBAR FORMAT. ALL QUESTIONS ANSWERED.
[2021-01-28 20:40] VITALS: BP 134/70
--- NOTE | 2021-01-28 20:53 | NUR ---
PT RECEIVED FROM ED TO ROOM 270. ARRIVES VIA STRETCHER ACCOMPANIED BY TAMMIE MCGHEE. PT AMBULATORY TO BED. PT IS WHEELCHAIR DEPENDENT. PT DENIES PAIN AT THIS TIME. ORIENTED TO UNIT, ROOM, CALL MAXWELL, LIGHTS, TV. ICE WATER PROVIDED. CALL MAXWELL WITHIN REACH. AGREES TO CALL PRN.
--- NOTE | 2021-01-28 21:30 | NUR ---
PHYSICAL ASSESMENT COMPLETE. PT CURRENTLY DENIES PAIN OR DISCOMFORT. SCHEDULED MEDICATIONS AND PRN MEDICATION ADMINISTERED, SEE E-MAR. PT DENIES ANY NEEDS AT THIS TIME. PLAN OF CARE REVIEWED, PT DENIES QUESTIONS, VERBALIZES UNDERSTANDING. ITEMS WITHIN REACH, BED LOCKED IN LOW POSITION W/ BEDRAILS UP X2. CALL MAXWELL WITHIN REACH, AGREES TO CALL PRN.
[2021-01-29] VITALS (19 sets, daily range): BP systolic 105–161; BP diastolic 55–86
--- NOTE | 2021-01-29 01:11 | NUR ---
PT LAYING IN BED. SLEEPING OFF AND ON. APPEARS COMFORTABLE AND IN NO DISTRESS. RESPIRATIONS REGULAR AND UNLABORED. ITEMS REMAIN WITHIN REACH, CALL MAXWELL REMAINS WITHIN REACH. BED REMAINS LOCKED AND IN LOW POSITION WITH BEDRAILS UP X2. WILL CONTINUE TO MONITOR.
--- NOTE | 2021-01-29 04:22 | NUR ---
PT C/O OF BED BEING UNCOMFORTABLE. REPOSITIONED PT AND PLACED PILLOWS ON ONE SIDE. PT STATE THAT IT DID LITTLE TO PROVIDE ADDITIONAL COMFORT. WILL CONTINUE TO MONITOR.
[2021-01-29 05:41] LABS: HEMOGLOBIN 9.4 g/dl (12.0-16.0); IMMATURE GRANULOCYTES 1.5 % (0.0-5.0); MEAN CELL VOLUME 97.5 fL CALC (80.0-100.0); MEAN CORPUSCULAR HGB 29.6 pG CALC (26.0-32.0); MEAN CORPUSCULAR HGB CONC 30.3 g/dL CAL (32.0-36.0); NEUT# 4.94 thou/uL (2.00-7.15); RED BLOOD COUNT 3.18 mill/uL (4.20-5.60); RED CELL DISTRI WIDTH 15.7 % (11.5-15.5)
[2021-01-29 05:52] LABS: ALBUMIN 3.5 g/dL (3.2-5.0); BILIRUBIN, TOTAL 0.7 mg/dL (0.0-1.4); CREATININE 2.8 mg/dL (0.5-1.0); MAGNESIUM 2.2 mg/dL (1.6-2.3); POTASSIUM 5.1 mmol/l (3.5-5.1); TOTAL PROTEIN 7.3 g/dL (6.3-8.2)
--- NOTE | 2021-01-29 07:00 | NUR ---
RECIEVED REPORT FROM LITZY SOSA.
--- NOTE | 2021-01-29 07:40 | NUR ---
PT SLEEPING IN SEMI FOWLERS POSITION. PT AWAKENS TO SPEECH. PT IS A/OX3.ASSESSMENT AND VITALS COMPLETED.BP 116/68, HR 88, O2 93% ON 3.5L NC.RESPIRATIONS ARE SHALLOW. LUNG SOUNDS ARE DIMINSHED.BOWEL SOUNDS ARE HYPOACTIVE.HEART RHYTHM NORMAL WITH TELE IN PLACE. RADIAL AND PEDAL PULSES STRONG. #20G EMS IN LFA FLUSHED, SITE APPEARS HEALTHY AND PATENT. BLE REDDENED AND SCALEY, PT STATES THIS IS CRONIC. PT INFORMED OF NEEDED URINE, PT VERBLAIZED UNDERSTANDING. PT DENIES OF ANY PAINS OR DISCOMFORTS.ALL SAFETY PRECAUTIONS ARE IN PLACE WITH CALL LIGHT IN REACH.WILL CONTINUE TO MONITOR.
[2021-01-29 09:46] LABS: URINE BILIRUBIN - DIPSTICK NEGATIVE (NEGATIVE); URINE BLOOD DIPSTICK TRACE-LYSED (NEGATIVE); URINE COLOR YELLOW; URINE GLUCOSE - DIPSTICK NEGATIVE (NEGATIVE); URINE KETONE NEGATIVE (NEGATIVE); URINE LEUK ESTERASE TRACE (NEGATIVE); URINE NITRITE - DIPSTICK NEGATIVE (Negative); URINE PH 5.5 (4.5-8.0); URINE PROTEIN - DIPSTICK >=300 mg/dL (NEG-TRACE); URINE SPECIFIC GRAVITY 1.025; URINE UROBILINOGEN - DIPSTICK 0.2 E.U./dL (0.2)
--- NOTE | 2021-01-29 09:50 | NUR ---
DR SKINNER AT BEDSIDE
[2021-01-29 09:52] LABS: URINE RBC 0-2 RBC/hpf (0-5); URINE SQUAMOUS EPITHELIAL CELL MODERATE EPI/hpf (0-FEW)
--- NOTE | 2021-01-29 10:45 | NUR ---
NANOSYSTEMS ENGINEER NOTIFIED BY [facility] THAT O2 WAS 85%. O2 INCREASED TO 6L NC. O2 92%. PT IS A/O X3 BUT DROWSY. PT STATES THAT SHE DOES NOT FEEL SOB. RESPRIRATIONS ARE LABORED. NOTIFIED. ORDERS TO TRANSFER TO ICU. PT NOTIFIED
--- NOTE | 2021-01-29 10:50 | NUR ---
ICU ROOM 2 OBTAINED FROM LITZY MOSER.
--- NOTE | 2021-01-29 11:29 | NUR ---
PT TRANSPORTED TO ICU BED 2VIA BED ACCOMPAINED BY LATHE SANDER AND HONEY DAVID IN STABLE CONDITION
--- NOTE | 2021-01-29 11:30 | NUR ---
PT BROUGHT TO ICU FOR CONTINUATION OF CARE, AJ PLACED. PT ON HIGH FLOW OXYGEN AT 6 LITRES , SATS 91% , LUNCH MEAL SERVED. PT SITTING UP IN BED EATING MEAL, WATCHING TV. DENIES BEING SOB OR ANY PAIN AT THIS TIME.
--- NOTE | 2021-01-29 12:26 | NUR ---
PT SLEEPING AT THIS TIME, VITAL SIGNS STABLE, HAS NOT EATEN ANY OF HER MEAL BUT SHE STATES SHE WILL EAT WHEN SHE WAKES UP, NOT HUNGARY , ACCUCHECK DONE AND IT IS 176. SATS 93% ON HIGH FLOW AT 6.
--- NOTE | 2021-01-29 14:16 | NUR ---
PT AWAKE AND WANTING TO EAT AT THIS TIME. PT ALERT/ORIENTED X3, REMAINS USING ABDOMINAL MUSCLES AND GRUNTING WHEN BREATHING, SATS ARE 93%
--- NOTE | 2021-01-29 16:42 | NUR ---
PT SITTING UP IN BED. PT C/O FEELING WARM, TEMPERATURE IN ROOM TURNED DOWN AND FAN DIRECTED AT PT FOR COMFORT. AJ JOVELMENT VERIFIED WHEN PT STATED SHE NEEDED TO USE THE BATHROOM. PT MADE COMFORTABLE IN BED AND OFFERED A SNACK AND DRINK. ACCEPTED JELLO A SNACK. PT IS NOW RESTING COMFORTABLY WITH NO COMPLAINTS AT THIS TIME.
--- NOTE | 2021-01-29 17:51 | NUR ---
PT SITTING IN HIGH FOWLERS IN BED, WATCHING TV AND EATING DINNER. PT SHOWS NO SIGNS OF DISTRESS AT THIS TIME.
--- NOTE | 2021-01-29 18:10 | NUR ---
pt wanted to be placed on bedpan even tho i explained about the purewick. approx 400cc of urine output. changed linens.
--- NOTE | 2021-01-29 18:30 | NUR ---
PT REQUESTING TO VOID AND REFUSED PUREWICK. PT VOIDED IN BEPAN. PT CLEANED, BED CHANGED. PT PULLED UP IN BED, PERSONAL ITEMS IN REACH. PT SITTING UP IN BED ON CELL PHONE. PT REQUESTED DRINK. DRINK GIVEN TO PT.
--- NOTE | 2021-01-29 20:25 | NUR ---
pt became quiet, sat 46%. went into room and pt nonreaponsice. wolfgang wilkins called
--- NOTE | 2021-01-29 20:35 | NUR ---
SATURATIONS IMPROVING GIVEN RESPIRATIONS VIA [id number]. CODE BLUE TEAM AT BEDSIDE. PULSE AND B/P REMAIN STABLE. PT WILL NOW OPEN EYES BUT NOT VERBALLY RESPONSIVE. DR FLOYD RECOMMENDED/ORDERED BIPAP. PT PLACED ON BIPAP: FIO2: 50%, I:20, O:10 AND A RATE OF 20.
--- NOTE | 2021-01-29 20:40 | NUR ---
GIVEN BIPAP, SAT'S RETURNED TO 80"S AND PT RESPONSIVC=VE TO PHYSICAL AND VERBAL STIMILI- AND ANSWERED SIMPLE QUESTIONS APPROPRIATELY.
[2021-01-29 20:57] LABS: HEMATOCRIT 32.3 % (37.0-47.0); HEMOGLOBIN 9.9 g/dl (12.0-16.0); IMMATURE GRANULOCYTES 4.2 % (0.0-5.0); MEAN CELL VOLUME 97.6 fL CALC (80.0-100.0); MEAN CORPUSCULAR HGB 29.9 pG CALC (26.0-32.0); MEAN CORPUSCULAR HGB CONC 30.7 g/dL CAL (32.0-36.0); NEUT# 9.01 thou/uL (2.00-7.15); RED BLOOD COUNT 3.31 mill/uL (4.20-5.60); RED CELL DISTRI WIDTH 15.9 % (11.5-15.5)
--- NOTE | 2021-01-29 21:00 | NUR ---
BLOOD DRAWN FOR LABWORK, ABG, EKG AND CXR COMLETED. SAT 88-90%. DR SKINNER CALLED WITH STATUS UPDATE AND FOR FURTHER ORDERS. RT GAVE ABG RESULTS. INSY=TRUCTED TO MAINTAIN BIPAP THROUGH THE NIGHT IF POSSIBLE. (CODE BLUE WAS [id number])
[2021-01-29 21:09] LABS: PROTHROMBIN TIME 10.3 SECONDS (9.0-12.5)
[2021-01-29 21:21] LABS: ALBUMIN 3.9 g/dL (3.2-5.0); CREATININE 2.9 mg/dL (0.5-1.0)
[2021-01-29 21:24] LABS: POTASSIUM 5.3 mmol/l (3.5-5.1)
--- NOTE | 2021-01-29 22:00 | NUR ---
BEDRESTING. HS MEDICATIONS GIVEN RX (DID NOT NEED INSULIN). BIPAP IN USE-TOLERATING WELL WITH NO RESISTANCE. SETTINGS BEING TITRATED BY RT. ARROUSES WITH STIMULI
[2021-01-30] VITALS (17 sets, daily range): BP systolic 113–140; BP diastolic 56–74
--- NOTE | 2021-01-30 00:52 | NUR ---
WAKES MORE READILY WITH VERBAL STIMULI. AT TIMES TALKING WITH NO ONE IN ROOM. TOLERATING BIPAP WELL
--- NOTE | 2021-01-30 02:33 | NUR ---
BEDRESTING. CPAP CONTINUES RX-TOLERATING WELL.
--- NOTE | 2021-01-30 03:30 | NUR ---
SHIVVERING. COVERING SELF WITH GOWN. TURNED OFF FAN, COVERED HER WITH SHEET AND BLANKET (WHICH WERE ON THE BED). PT THANKED ME
--- NOTE | 2021-01-30 04:43 | NUR ---
BLOOD DRAWN FOR AM LABWORK. PT TALKATIVE. ALERT.COOPERATIVE
--- NOTE | 2021-01-30 05:20 | NUR ---
PCXR COMPLETED. ANSWERING QUESTIONS APPROPRIATELY. HAS BEEN TALKING (IN ROOM ALONE) FOR ABOUT AN HOUR. READILY TALKS TO STAFF WHEN ENTERING ROOM
[2021-01-30 05:25] LABS: HEMATOCRIT 31.3 % (37.0-47.0); HEMOGLOBIN 9.7 g/dl (12.0-16.0); MEAN CELL VOLUME 97.2 fL CALC (80.0-100.0); MEAN CORPUSCULAR HGB 30.1 pG CALC (26.0-32.0); RED BLOOD COUNT 3.22 mill/uL (4.20-5.60); RED CELL DISTRI WIDTH 15.8 % (11.5-15.5)
--- NOTE | 2021-01-30 05:38 | NUR ---
NO URINARY OUTPUT SINCE LASIX GIVEN AT 2100 LAST NIGHT. HOWEVER, REPORTEDLY, PT HAD EXTRA LARGE URINE OUTPUT ABOIT 1900 WHEN SHE OVERFILLED BEDPAN. PURWICK REMAINS IN PLACE AND NO URINE IN SUCTION CANISTER, PT DENIES NEED TO VOID AT THIS TIME.
--- NOTE | 2021-01-30 05:44 | NUR ---
AM ABG DONE- RESULTS CONTINUE TO IMPROVE. BIPAP SETTINGS: 20/10, RATE 24, O2 40%
[2021-01-30 05:48] LABS: ALBUMIN 3.5 g/dL (3.2-5.0); BILIRUBIN, TOTAL 0.9 mg/dL (0.0-1.4); CREATININE 2.9 mg/dL (0.5-1.0); TOTAL PROTEIN 7.3 g/dL (6.3-8.2)
[2021-01-30 05:55] LABS: POTASSIUM 5.7 mmol/l (3.5-5.1)
--- NOTE | 2021-01-30 06:13 | NUR ---
TALKATIVE. WANTS MASK OFF. AGREED TO KEEP ON UNTIL BREAKFAST. PUREWICK REMAINS IN PLACE. HL IN LEFT HAND
--- NOTE | 2021-01-30 07:40 | NUR ---
PT SLEEPING IN BED. AWAKENED TO COMPLETE ASSESSMENT. A&O X4. BIPAP IN PLACE, O2 SUSTAINING 96%. PT EDUCATED ON THE NEED TO KEEP BIPAP IN PLACE, PT VERBALIZED UNDERSTANDING. CLEAR/DIMINISHED BREATH SOUNDS HEARD UPON AUSCULTATION. HIDE AND SKIN PROCESSING WORKER IN PLACE, CURRENTLY SR WITH A RATE OF 80. ACTIVE BOWEL SOUNDS X4 QUADRANTS. PUREWICK IN PLACE, CONNECTED TO SUCTION, NO CURRENT URINE NOTED IN COLLECTION CANISTER. DR SKINNER TO BE NOTIFIED. BLE WITH +2 EDEMA TO BILATERAL LEGS, REDNESS NOTED. NO OPEN WOUNDS NOTED AT THIS TIME. #22 LH HEALTHY AND PATENT. ASSESSMENT COMPLETED. DISCUSSED POC. CALL LIGHT WITHIN REACH.
--- NOTE | 2021-01-30 08:06 | NUR ---
DR SKINNER AT BEDSIDE DISCUSSING POC
--- NOTE | 2021-01-30 08:49 | NUR ---
SERNA CATHETER 16F INSERTED BY Pearl LAUGHLIN RN WITH THE ASSISTANCE OF THIS LINE MECHANIC AND Jad STEPHENSON RN. PT TOLERATED WELL. 300 CC OF YELLOW URINE NOTED AFTER INSERTION. PT REPORTS RELIEF. NO OTHER NEEDS AT THIS TIME. CALL LIGHT WITHIN REACH
--- NOTE | 2021-01-30 09:24 | NUR ---
Patient eating breakfast on 6 liter high flow nasal cannula. Bipap on standby. O2 sat 94%.
--- NOTE | 2021-01-30 10:50 | NUR ---
Patient remains on 6 liter high flow nasal cannula. O2 sats where 80-82%. I ncreased flow to 10 liters per/min. O2 sats 88-92%. Will monitor status.
[2021-01-30 12:14] LABS: CREATININE 2.8 mg/dL (0.5-1.0)
[2021-01-30 12:34] LABS: POTASSIUM 5.2 mmol/l (3.5-5.1)
--- NOTE | 2021-01-30 12:43 | NUR ---
dr chase notified of BUN result. Per Dr Chase, d/c jose manuel, order written and faxed to pharmacy. Dr. Kay consult placed, no answer voicemail left, awaiting call back.
--- NOTE | 2021-01-30 12:49 | NUR ---
CALL BACK REC FROM DR GARCIA, NO NEW ORDERS AT THIS TIME. INFORMED OF DISCONTINUATION OF LASIX.
--- NOTE | 2021-01-30 14:10 | NUR ---
PT SLEEPING IN BED. NO DISTRESS NOTED. CONTINUES ON 6L HUMIDIFIED SUSTAINING @ 92% . CALL LIGHT WITHIN REACH.
--- NOTE | 2021-01-30 14:23 | NUR ---
PT SITTING IN RECLINER. NO NEEDS AT THIS TIME. CALL LIGHT WITHIN REACH.
--- NOTE | 2021-01-30 16:00 | NUR ---
PT SLEEPING IN BED. NO DISTRESS NOTED. O2 CURRENTLY 90%. PER DR SKINNER BIPAP TO BE PLACED AT NIGHT AND PRN WHEN NEEDED DURING THE DAY. CALL LIGHT WITHIN REACH.
--- NOTE | 2021-01-30 19:10 | NUR ---
RECEIVED REPORT. BEDRESTING. N/C AT 6L IN USE. SL OF LEFT HAND. SERNA TO BSD WITH CLEAR YELLOW URINE. WATCHING TV. INFORMED OF MD RECOMMENDATION FOR CPAP DURING NIGHT-PT SAID SHE WAS ALREADY AWARE OF THAT. SAT 87%
--- NOTE | 2021-01-30 20:05 | NUR ---
TO BEDPAN (PER REQUEST) HAD SNEAR OF SOFT BROWN STOOL. ROLLED SIDE TO SIDE DURING WHICH SAT DROPPED TO 64. RT IN UNIT AND RESUMED BIPAP AT THIS TIME
--- NOTE | 2021-01-30 20:27 | NUR ---
TOLERATING BIPAP WELL. SAT 89%
--- NOTE | 2021-01-30 22:00 | NUR ---
BEDRESTING. ON BIPAP (SETTINGS: 20/10, RATE 24 AND O2 40%). SAT 89%
--- NOTE | 2021-01-30 23:40 | NUR ---
BEDRESTING. RT HAS CHANGED MASK SIZE TO GET BETTER SEAL- PT TOLERATING NEW MASK. READILY AWAKENS WHEN STAFF ENTERS ROOM. VERBALLY RESPONSIVE AND ORIENTED
[2021-01-31] VITALS (16 sets, daily range): BP systolic 115–166; BP diastolic 56–80
--- NOTE | 2021-01-31 01:20 | NUR ---
CONTINUES WITH BIPAP-TOLERATING WELL- SATS LORENZO HIGH 80'S.
--- NOTE | 2021-01-31 03:47 | NUR ---
PT PULLED OF BIPAP MASK AND SAID SHE COULD NOT BREATHE WITH IT ON AND WANTS THE N/C BACK ON. N/C REAPPLIED AT 6L/MIN. SAT READILY DROPPED TO 70. DISCUSSED RATIONALE FOR BIPAP AND DISCUSSED LIFE SUPPORT IF CONDITION NEEDED. INITIALLY PT SAID NO BUT THEN SHE BEACME TEARFUL AND SAID SHE DOES NOT WANT TO . ATH THIS POINT, SHE AGREED TO RESUME BIPAP
--- NOTE | 2021-01-31 04:04 | NUR ---
RT REPORTED SETTINGS CHANGED TO 18/, RATE 24 AND 40% OXYGEN
--- NOTE | 2021-01-31 06:00 | NUR ---
LAB HERE FOR AM BLOOD DRAW. PT REMAINS ON BIPAP-TOLERATING WELL. SAT LOW 90'S
--- NOTE | 2021-01-31 06:43 | NUR ---
BIPAP PLACED STANDBY. PLACED ON 6L HFNC.
[2021-01-31 06:44] LABS: ALBUMIN 3.3 g/dL (3.2-5.0)
[2021-01-31 06:55] LABS: POTASSIUM 5.2 mmol/l (3.5-5.1)
--- NOTE | 2021-01-31 07:30 | NUR ---
PT SITTING UP IN BED, AWAKE. RN ASSESSED PT. SERNA IN PLACE, NO PAIN OR DISCOMFORT VERBALIZED BY PT AT SITE. IV INTACT, NO PAIN, REDNESS OR DRAINAGE.
--- NOTE | 2021-01-31 08:24 | NUR ---
AT BEDSIDE. MD STATED TO KEEP PT IN ICU, WEAN OFF O2, CONTINUE LASIX SLOWLY, MONITOR KIDNEY FUNCTION. STATED POSSIBLE ECHO TO BE ORDERED.
--- NOTE | 2021-01-31 10:51 | NUR ---
PT SITTING UP IN BED WATCHING TV AND TALKING WITH SISTER ON THE PHONE. PT HAS NO COMPLAINTS OR CONCERNS AT THIS TIME. SERNA EMPTIED AND ASSESSED.
--- NOTE | 2021-01-31 12:40 | NUR ---
DR. GARCIA AT BEDSIDE.
--- NOTE | 2021-01-31 12:57 | NUR ---
PT SITTING UP IN BED WATCHING TV. MD SPOKE WITH PT. PERSONAL ITEMS IN REACH. NO CONCERNS AT THIS TIME.
--- NOTE | 2021-01-31 14:34 | NUR ---
PT RESTING IN BED. SERNA CATH EMPTIED. NO COMPLAINTS OR CONCERNS AT THIS TIME.
--- NOTE | 2021-01-31 16:03 | NUR ---
PT REQUESTED USE OF BEDPAN. NO BOWEL MOVEMENT. SERNA CATH IN PLACE. PT REPOSITIONED IN BED. ACCU CHECK COMPLETED. PT PRESENTING WITH LABORED BREATHING WITH SPEECH, BUT NOT WORSENING FROM BASELINE, PT INSTRUCTED TO PERFORM DEEP BREATHING, THAT SEEMED TO HELP LESSEN HER ANXIETY RELATED TO SHORTNESS OF BREATH. PT STILL SEEMS TO HAVE SOME ALTERED MENTAL STATUS AND ANXIETY THAT IS CALMED WITH TALKING TO HER. PT MADE COMFORTABLE IN BED. PERSONAL ITEMS WITHIN REACH. PT INSTRUCTED TO CALL FOR ASSISTANCE IF NEEDED.
--- NOTE | 2021-01-31 16:46 | NUR ---
PT RESTING IN BED WATCHING TV. PERSONAL ITEMS IN REACH. NO COMPLAINTS OR CONCERNS AT THIS TIME.
--- NOTE | 2021-01-31 17:51 | NUR ---
PT FINISHED EATING DINNER. PT APPEARS VERY ANXIOUS. VERBAL REASSURANCE GIVEN. PERSONAL ITEMS IN REACH.
--- NOTE | 2021-01-31 19:00 | NUR ---
REPORT GIVEN BY MARIETTA CAMARILLO. PATIENT IS IN BED WATCHING TV. RESP LABORED AND EVEN ON 6L VIA NC. ALERT AND ORIENTED X 4. FALL AND SAFTEY PRECAUTIONS IN PLACE. IV SALINE LOCKED. SERNA DRAINING TO GRAVITY. PLAN OF CARE DISCUSSED. PATIENT INFORMED TO CALL WITH ANY QUESTIONS OR CONCERNS.
--- NOTE | 2021-01-31 19:14 | NUR ---
PATIENT C/O NOT FEELING WELL. SHE IS UNABLE TO TELL ME WHAT IS WRONG. O2 SAT ARE 82% ON 6L VIA NC. PATIENT ASKED IF SHE WANTED TO WEAR BIPAP SINCE HER SAT ARE LOW. PATIENT STATED SHE DIDN'T WANT TO WEAR MASK. RT CALLED TO EVAL PATIENT.
--- NOTE | 2021-01-31 19:37 | NUR ---
PATIENT PLACED ON BIPAP BY RT. SETTING 18/10, 40% FIO2, AND RATE 24. PER RT IF TAKEN OFF BIPAP PLACE PATIENT ON 10L HI-FLOW TO MAINTAIN O2 SAT.
--- NOTE | 2021-01-31 21:31 | NUR ---
BEDTIME MEDICATION GIVEN. ACCU CHECK PERFORMED. BEDTIME SNACK OFFERED BUT PATIENT IS CURRENTLY STILL ON BIPAP AT THE MOMENT. FALL AND SAFTEY PRECAUTIONS IN PLACE.
[2021-02-01] VITALS (19 sets, daily range): BP systolic 106–154; BP diastolic 55–99
--- NOTE | 2021-02-01 | NUR ---
PATIENT RESTING WITH EYE CLOSED. RESP EVEN AND UNLABORED WITH BIPAP. NO S/S OF DISTRESS NOTED. FALL AND SAFTEY PRECAUTIONS IN PLACE.
--- NOTE | 2021-02-01 01:45 | NUR ---
patient resting with eyes closed. resp even and unlabored. no s/s of distress noted. fall and saftey precautions in place.
--- NOTE | 2021-02-01 03:53 | NUR ---
patient resting with eyes closed. resp even and un labored, bipap in place. no s/s of distress noted. fall and saftey precautions in place.
--- NOTE | 2021-02-01 04:40 | NUR ---
PATIENT TAKEN OFF BIPAP PER HER REQUEST. PLACED ON 10L HI-FLOW VIA NC, O2 SAT 88%
[2021-02-01 06:21] LABS: HEMOGLOBIN 8.9 g/dl (12.0-16.0); IMMATURE GRANULOCYTES 3.2 % (0.0-5.0); MEAN CELL VOLUME 96.3 fL CALC (80.0-100.0); MEAN CORPUSCULAR HGB 29.6 pG CALC (26.0-32.0); MEAN CORPUSCULAR HGB CONC 30.7 g/dL CAL (32.0-36.0); NEUT# 4.56 thou/uL (2.00-7.15); RED BLOOD COUNT 3.01 mill/uL (4.20-5.60); RED CELL DISTRI WIDTH 15.9 % (11.5-15.5)
--- NOTE | 2021-02-01 06:23 | NUR ---
IV FOUND DISLODGED. NEW IV STARTED 22 RIGHT HAND.
[2021-02-01 06:27] LABS: ALBUMIN 3.4 g/dL (3.2-5.0); CREATININE 3.1 mg/dL (0.5-1.0); MAGNESIUM 2.3 mg/dL (1.6-2.3); POTASSIUM 5.1 mmol/l (3.5-5.1)
--- NOTE | 2021-02-01 06:28 | NUR ---
PATIENT HAS ASKED FOR THE BEDPAN SEVERAL TIMES THROUGHOUT THE NIGHT. SHE DID NOT HAVE A BM.
--- NOTE | 2021-02-01 07:23 | NUR ---
PT ALERT/ORIENTED, ASKED TO BE MOVED UP IN BED, AND THEN ASKED FOR HER PHONE TO BE BROUGHT TO HER AND TELLING WHOEVER SHE WAS TALKING TO THAT SHE CANT STAND BEING HERE IN THIS ROOM BECAUSE SHE NEEDS SOMEONE IN ROOM WITH HER AT ALL TIMES, AND SHE WANTS SOMEONE TO TALK TO, WILL ASK DOCTOR FOR SOMETHING FOR ANXIETY.
--- NOTE | 2021-02-01 07:45 | NUR ---
LISTENING TO PT CALL [facility], STATING SHE NEEDS SOMEONE TO COME SIT WITH HER SO SHE ISNT ALONE IN ROOM. ADVISED PT THAT NO ONE FROM [facility] CAN COME SIT WITH HER ALL DAY, SHE STATES SHE DOESNT WANT TO SIT IN ROOM BY HERSELF, SHE IS USED TO HAVING SOMEONE TO TALK TO ALL DAY.
--- NOTE | 2021-02-01 08:30 | NUR ---
ORDERING EKG, DDIMER, AND VQ SCAN
--- NOTE | 2021-02-01 08:51 | NUR ---
PT KINDERGARTNERS HELPER LIGHT EVERY FEW MIN. STATES WANTS SOMEONE TO SIT IN THERE WITH HER.
--- NOTE | 2021-02-01 09:57 | NUR ---
PT SLEEPING, SATS DROPPED TO 82, CHANGED PULSE OX OUT, BUT SATS STILL HUNG AROUND 82, INCREASED OXYGEN TO 12, BUT PT STILL HAVING LABORED BREATHING. ALERT/ORIENTED X3, CALLED RESP TO PLACE PT BACK ON BIPAP DURING TIME PT IS SLEEPING, WILL EVALUATE ONCE SHE WAKES UP.
--- NOTE | 2021-02-01 10:07 | NUR ---
PLACED PT ON BIPAP PER PT SPO2 DECREASED TO 78, WHILE PT ASLEEP. CAN PUSHER TITRATED PARAMETERS OF NIV ACCORDINGLY. PT DAMIEN WELL AT THIS TIME. NO ACUTE DISTRESS NOTED. PT RESTING COMFORTABLY IN BED. RN AWARE. CAN PUSHER TO MONITOR.
--- NOTE | 2021-02-01 10:30 | NUR ---
PT REMAINS RESTING IN BED WITH BIPAP ON, SATS 89-90%, NO DISTRESS NOTED.
--- NOTE | 2021-02-01 11:23 | NUR ---
PT REMAINS SLEEPING AT THIS TIME, GROUND DEFENCE OFFICER AT BEDSIDE EVALUATION, NO DISTRESS NOTED. SATS REMAIN 88-90, WILL CONTINUE TO MONITER.
--- NOTE | 2021-02-01 11:28 | NUR ---
INSTRUCTIONAL MEDIA SERVICES TECHNICIAN HERE FOR LEFT LOWER EXTREMETY DOPPLER
--- NOTE | 2021-02-01 11:54 | NUR ---
INCREASED FIO2 PER PT SPO2 = 81. PT SPO2 ON .65 FIO2 = 89. RN AWARE. FINISHING DEPARTMENT SUPERVISOR TO MONITOR.
--- NOTE | 2021-02-01 14:16 | NUR ---
FOUND PT TRYING TO PUT LEGS OVER BOTTOM SIDE RAIL TO GET OUT OF BED, PLACED BACK IN BED, AND CHANGED SHEETS AND GOWN. PLACED NEW CARDIAC MONITER ELECTRODES ON AND PT AWAKE AND ALERT AT THIS TIME. VITAL SIGNS STABLE WITH PT REMAINING ON BIPAP AT THIS TIME, SATS ARE 92%.
--- NOTE | 2021-02-01 15:44 | NUR ---
PT BROUGHT BACK FROM [email or web address] [facility]. UNABLE TO HAVE VQ SCAN BECAUSE COULD NOT FIT INTO MACHINE. PT PLACED BACK ON BIPAP AND SATS 94%, AND PT IS RESTING AT THIS TIME.
--- NOTE | 2021-02-01 17:00 | NUR ---
PT RESTING QUIETLY ON BED WATCHING TV. ADVISED HER THAT HER BLOOD SUGAR WAS NORMAL AND WOULD NOT NEED INSULIN COVERAGE. SHE ASKED FOR A DRINK, REMOVED BIPAP MASK AND SHE DRANK SOME WATER, ASKED IF SHE WOULD LIKE TO HAVE HIGH FLOW PLACED BACK ON AND SHE SAID NOT AT THIS TIME, SHE FELT LIKE SHE COULD BREATHE EASIER WITH MASK, SHE ASKED IF ANYONE HAD COME IN TO SEE HER AND ADVISED NOT SO FAR TODAY.
--- NOTE | 2021-02-01 17:34 | NUR ---
PTS DINNER TRAY WAS DELIVERED AND ANNIKA TOOK IT IN TO HER, BUT SHE TOLD HER SHE WAS TIRED RIGHT NOW AND SAVE IT. FOOD LEFT IN ROOM.
--- NOTE | 2021-02-01 17:57 | NUR ---
PT RESTING COMFORTABLY IN BED. ASLEEP. NAD. VSS. HERD TESTER TO MONITOR. RN AWARE.
--- NOTE | 2021-02-01 18:19 | NUR ---
PULMONOLOGY CONSULT PLACED
--- NOTE | 2021-02-01 18:23 | NUR ---
DR. WORKMAN CALLED IN FOR CONSULT ON IPAD. WILL PLACE HER RECOMMENDATIONS IN.
--- NOTE | 2021-02-01 18:27 | NUR ---
PT DROWSY BUT ANSWERED DRS QUESTIONS DURING CONSULT. EMPTIED SERNA OF 300CC OF DARK ORANGE URINE. PT REFUSING DINNER AT THIS TIME, STATES SHE JUST WANTS TO SLEEP
--- NOTE | 2021-02-01 19:00 | NUR ---
RECEIVED REPORT FROM AM NURSE. PATIENT CURRENTLY RESTING IN BED. PATIENT WITH BIPAP IN PLACE. 02 SAT 93%. PATIENTS VITALS >100 SBP. PATIENT HR 63. WILL CONTINUE TO MONITOR.
--- NOTE | 2021-02-01 20:00 | NUR ---
ASSESSMENT COMPLETED. PATIENT RESTNG WITH BIPAP ON. PATIENT VERY SLEEPY BUT AWAKES TO VOICE. PATIENT FOLLOWS COMMANDS. SHE IS ABLE TO STATE HER . PATIENT TURNED AND REPOSITIONED. MOUTH CARE PROVIDE. PERIPHERAL IV. SERNA IN PLACE. WILL CONTINUE TO MONITOR.
--- NOTE | 2021-02-01 22:00 | NUR ---
PATIENT RESTING IN BED. PATIENT CONTINUES WITH BIPAP ON. O2 SAT 94%. PATIENT TURNED AND REPOSTIONTED. PATIENT WITH NO COMPLAINTS OF PAIN OR DISCOMFORT. PATIENT VITALS STABLE. HEART RATE SR, BLOOD PRESSURE >[address], IV INTACT. WILL CONTINUE TO MONITOR.
[2021-02-02] VITALS (9 sets, daily range): BP systolic 90–123; BP diastolic 53–74
--- NOTE | 2021-02-02 | NUR ---
PATIENT RESTING IN BED. REQUESTING MASK BE TAKEN OFF. PATIENT PLACED ON NC FOR 30 MINS. MOUTH CARE PROVIDED. WATER GIVEN. PATIENT WITH NO COMPLAINTS OF PAIN. PATIENT ALERT AND ORIENTED X3. PATIENT O2 SAT 93% ON 10L NC. WILL CONTINUE TO MONITOR.
--- NOTE | 2021-02-02 02:00 | NUR ---
PATIENT CONTINUES WITH BIPAP ON. PATIENT TOLERATING WELL. PATIENT WITH NO SIGNS OF PAIN OR DISCOMFORT. PATIENTS VITALS STABLE 02 SAT 93 %. PATIENT HR RATE 60'S, AND BLOOD PRESSURE >100 SBP. PATIENT AFEBRILE. SERNA IN PLACE. WILL CONTINUE TO MONITOR.
--- NOTE | 2021-02-02 04:00 | NUR ---
PATIENT CONTINUES RESTING IN BED. TOLERATING BIPAP. PATIENT TURNED AND REPOSITIONED Q2H, MOUTH CARE Q2H. PATIENT WITH NO SIGNS OF DISTRESS. VITALS STABLE, WILL CONTINUE TO MONITOR.
--- NOTE | 2021-02-02 06:04 | NUR ---
PT PLACED ON BIPAP PER ABG RESULTS. FIRE SUPPORT SPECIALIST TO MONITOR.
[2021-02-02 06:08] LABS: HEMOGLOBIN 8.8 g/dl (12.0-16.0); IMMATURE GRANULOCYTES 3.1 % (0.0-5.0); MEAN CELL VOLUME 94.9 fL CALC (80.0-100.0); MEAN CORPUSCULAR HGB 29.8 pG CALC (26.0-32.0); MEAN CORPUSCULAR HGB CONC 31.4 g/dL CAL (32.0-36.0); NEUT# 5.83 thou/uL (2.00-7.15); RED BLOOD COUNT 2.95 mill/uL (4.20-5.60); RED CELL DISTRI WIDTH 15.9 % (11.5-15.5)
--- NOTE | 2021-02-02 06:10 | NUR ---
CHANGED PT TO AVAPS MODE ON NIV. 420 TIDAL VOLUME. EPAP 15.FIO2 .65. RATE 20. RISE TIMNE 2. I TIME .90. MAX P 35. RIDING DOUBLE TO DRAW ABG AT 0700 AND REASSESS BASED UPON RESULTS. PT AWAKE AND MENTATING APPROPRIATELY AT THIS TIME. ANSWERS AND CONVERSES C RIDING DOUBLE APPROPRIATELY. RIDING DOUBLE TO MONITOR.
--- NOTE | 2021-02-02 06:15 | NUR ---
DECREASED FIO2 TO 50. DECREASED EPAP TO 10 C,H20 TO KEEP SPO2 88-92. RAW CHEESE WORKER TO MONITOR.
--- NOTE | 2021-02-02 06:30 | NUR ---
PATIENT RESTING IN BED. PATIENT WITH NO SIGN OF DISTRESS. PATIENT CONTINUES ON BIPAP. MOUTH CARE PROVIDED. PATIENT TURNED. PATIENT CONTINUES WITH SERNA. PATIENT WITH LOW URINE OUTPUT. PATIENTS IV REPLACED. NEW IV LFA. PATIENT REQUESTING MASK OFF. PATIENT PLACED ON NC FOR 10 MINS. PATIENT PLACED BACK ON BIPAP. ABG AND XRAY PER ELECTRICAL MAINTENANCE ENGINEER. BIPAP SETTINGS CHANGED PER RT. WILL CONTINUE TO MONITOR.
[2021-02-02 07:02] LABS: CREATININE 3.1 mg/dL (0.5-1.0)
[2021-02-02 07:04] LABS: POTASSIUM 5.6 mmol/l (3.5-5.1)
--- NOTE | 2021-02-02 07:05 | NUR ---
LAB CALLED TO NOTIFY OF ELEVATED BUN. WILL AWAIT PENDING ABG TO CALL MD. WILL AWAIT RESULTS.
--- NOTE | 2021-02-02 07:20 | NUR ---
RECIEVED PATIENT FROM NIGHT NURSE.
--- NOTE | 2021-02-02 08:00 | NUR ---
PATIENT ASSSED. SAFETY MEASURES IN PLACE. CALL LIGHT IN REACH. WILL COTNINUE TO MONITOR.
--- NOTE | 2021-02-02 09:30 | NUR ---
INTUBATION IS SET UP. CURRENTLY BEING PERFORMED AT BEDSIDE. VERBAL CONSENT WAS GIVEN TO DR. SKINNER EARLIER THIS MORNING DURING HIS ROUNDS , BOTH JACQUELINE MCGHEE AND MYSELF HEARD THIS WELL. DID ASK HER AGAIN FOR SECOND TIME PROIR TO THE PROCESS STARTING. SHE STILL AGREED TO BE INTUBATED.
--- NOTE | 2021-02-02 09:36 | NUR ---
set up invasive vent as per abg results and md velazquez to call anesthesia and intubate.
--- NOTE | 2021-02-02 09:54 | NUR ---
0953-RAPID RESPONSE CALLED 0954- CODE BLUE WAS CALLED SEE CODE SHEET
--- NOTE | 2021-02-02 10:07 | NUR ---
PATIENTS NEXT OF KIN "FILEMON" CALLED BACK AND INFORMED PULSE WAS OBTAINED AT THIS TIME AND FILEMON COMMENTED "THAT'S UNFORTUNATELY SHE NEEDS TO GO [facility]. INFORMED NEXT OF KIN HE WILL BE CALLED WITH UPDATES.
--- NOTE | 2021-02-02 10:07 | NUR ---
SPOKE TO LISTED NEXT OF KIN AT THIS TIME TO INFORM THAT PATIENT WAS IN RESPIRATORY ARREST AT THIS TIME AND NO PULSE HAS BEEN ESTABLISHED. "FILEMON" STATED "OKAY" "SHE NEEDS TO PASS ON". EXPLAINED TO NEXT OF KIN EFFORTS ARE BEING MADE TO OBTIAN PULSE AT THIS TIME BY CODE TEAM. FILEMON STATED "JUST CALL ME BACK IF THIS DOES NOT HAPPEN".
--- NOTE | 2021-02-02 10:21 | NUR ---
PATIENTS NEXT OF KIN "FILEMON" CALLED AND INFORMED THAT EFFORTS TO RESUSITATE PATIENT FAIL AND TIME OF WAS CALLED AT 1020AM. FILEMON WAS ASKED IF THERE WAS A PITICULAR HOME HE WOULD LIKE PATIENT TO BE SENT TO HIS COMMENTS WHERE "DON'T YOU CREAMATE AT THE HOSPITAL" FILEMON INFORMED "NO" FILEMON THEN STATED TO SEND PATIENT TO "[facility]" HOME TO CREAMATE HER". IT WAS EXPLAINED TO FILEMON THAT HE WILL BE CALLED BY PATIENTS NURSE SOON TO GO OVER INFORMATION.
--- NOTE | 2021-02-02 10:33 | NUR ---
ABG OBTAINED PER MD ORDER S/P BIPAP C AVAPS MODE INITIATED. SOON THEREAFTER, RAPID RESPONSE CALLED. DURING RAPID RESPONSE, PT C PEA, CODE BLUE INITIATED. RT C ANESTHESIA BAGGED AND ATTEMPTED INTUBATION 2X. ANESTHESIA UNSUCCESSFUL, RT SUCCESSFUL C INTUBATION PER + CHEST EXCURSION + BBS PER ANESTHESIA, + COLOR CHANGE ON ETCO2 DETECTION DEVICE AND CONDENSATION VISIBLE IN TUBE. wHEN ETT REMOVED, ETT PLUGGED C THICK, TENACIOUS SECRETIONS. NON TRAUMATIC INTUBATION ATTEMPTS. BUT CUFF OF ETT BLOWN PER PT BITING. ETT REMOVED, AND PT BAGGED UNTIL ANESTHESIA PLACED DOROTHY TUBE FOR VENTILATION AND OXYGENATION PURPOSES. PT C BMV AT THIS POINT FOR THE DURATION OF CODE BLUE SITUATION.
--- NOTE | 2021-02-02 10:50 | NUR ---
PATIENT CODED DURING THE INTUBATION PROCESS. CODE WAS CALLED. CPR WAS PERFORMED. NEXT OF KIN WAS CALLED DURING THIS TIME, HE STATED THAT WE CAN GO AHEAD AND STOP PER TWO NURSES WHO WERE ON THE PHONE WITH HIM. 1020 WAS THE TIME OF . UPDATES WERE GIVEN TO NEXT OF KIN.
--- NOTE | 2021-02-02 11:50 | NUR ---
CONTACTED Mr. Youth, THEY DECLINED.
--- NOTE | 2021-02-02 12:30 | NUR ---
phoned [facility] for cook pickled meat
--- NOTE | 2021-02-02 13:40 | NUR ---
pt leaves via [facility].
--- NOTE | 2021-02-02 13:55 | NUR ---
notified maggie zavala of patient passing away.
== END 2021-02-02 10:20 | disposition expired | DRG 291 ==
LOC: ED 18:21 → ED-I 19:33 → ED 19:54 → MS2 19:55 → ICU 01-29 11:25
PROVIDERS: Emergency Medicine; Internal Medicine Nephrology; Nurse Practitioner Family; ADMIT Internal Medicine; ATTEND Internal Medicine
PROC: 5A09357 Assistance with Respiratory Ventilation, Less than 24 Consecutive Hours, Continuous Positive Airway Pressure (ICD-10-PCS; principal; 2021-01-29)
PROC: 05H533Z Insertion of Infusion Device into Right Subclavian Vein, Percutaneous Approach (ICD-10-PCS; 2021-02-02)
PROC: 0BH17EZ Insertion of Endotracheal Airway into Trachea, Via Natural or Artificial Opening (ICD-10-PCS; 2021-02-02)
PROC: 5A12012 Performance of Cardiac Output, Single, Manual (ICD-10-PCS; 2021-02-02)
DX: I13.0 Hypertensive heart and chronic kidney disease with heart failure and stage 1 through stage 4 chronic kidney disease, or unspecified chronic kidney disease (principal); I50.33 Acute on chronic diastolic (congestive) heart failure; J96.92 Respiratory failure, unspecified with hypercapnia; J96.91 Respiratory failure, unspecified with hypoxia; Z68.43 Body mass index [BMI] 50.0-59.9, adult; L03.116 Cellulitis of left lower limb; L03.115 Cellulitis of right lower limb; N18.4 Chronic kidney disease, stage 4 (severe); E87.1 Hypo-osmolality and hyponatremia; N17.9 Acute kidney failure, unspecified; E66.2 Morbid (severe) obesity with alveolar hypoventilation; E87.2 Acidosis; N28.89 Other specified disorders of kidney and ureter; I95.9 Hypotension, unspecified; D63.1 Anemia in chronic kidney disease; E87.5 Hyperkalemia; J44.9 Chronic obstructive pulmonary disease, unspecified; Z86.73 Personal history of transient ischemic attack (TIA), and cerebral infarction without residual deficits; F32.9 Major depressive disorder, single episode, unspecified; Z87.891 Personal history of nicotine dependence; E11.22 Type 2 diabetes mellitus with diabetic chronic kidney disease; Z20.822 Contact with and (suspected) exposure to COVID-19
CPT/HCPCS: G0378; J1650